=== PATIENT | male | born 1965 | race Caucasian/White ===

== ENCOUNTER → 2017-08-22 09:28 | Outpatient (CLI) | payer OTHER, SELFPAY ==
--- NOTE | 2017-08-22 09:35 | RAD_ITS ---
STUDY: X-RAY CHEST REASON FOR EXAM: Male, 52 years old. Increasing shortness of breath on excision. Chest discomfort. TECHNIQUE: PA and lateral views of the chest. COMPARISON: None. FINDINGS: The lungs are clear and expanded. There is no demonstrated pleural abnormality. Normal size heart. Normal mediastinum and paula. Normal visualized pulmonary arteries. There is atherosclerotic tortuosity of the aortic arch and descending thoracic aorta. There are degenerative changes of the visualized thoracic spine. Normal visualized ribs, clavicles, and shoulders. There is no demonstrated abnormality of the visualized soft tissue structures of the upper abdomen. RAD/Chest PA and Lateral IMPRESSION: No acute abnormality is seen. Electronically Signed: Kahlil Bailey MD at 13:36 EST Tel [phone], Service support ,
[2017-08-22 11:32] LABS: Absolute Neutrophil Count 3.5 X10^3/uL (2.0-7.7); Basophil# 0.02 X10^3/uL; Basophil% 0.3 % (0-1); Eosinophil# 0.05 X10^3/uL; Eosinophils% 0.9 % (0-5); Hematocrit 48.1 % (40-54); Hemoglobin 16.8 g/dl (13.0-16.5); Lymphocyte % 25.9 % (19-41); Mean Corp Hgb Conc 34.9 g/gl (32-36); Mean Corpuscular Hgb 29.2 pg (27.0-32.0); Mean Corpuscular Volume 83.7 fL (80-94); Mean Platelet Vol. 10.2 fl (6.2-12.0); Monocyte# 0.72 X10^3/uL; Monocyte% 12.4 % (0-10); Neutrophil # 3.48 X10^3/uL (2.7-7.7); Neutrophil % 60.2 % (47-70); Platelet Count 245 K/mm3 (150-450); RBC Distribution Width CV 12.6 % (11.6-14.6); Red Blood Count 5.75 M/mm3 (4.6-6.2); White Blood Count 5.8 K/mm3 (4.4-11.0)
[2017-08-22 11:34] LABS: POSITIVE COUNT NO; POSITIVE DIFFERENTIAL NO; POSITIVE MORPHOLOGY NO
[2017-08-22 11:50] LABS: Prothrombin Time (Protime)PT. 12.7 SECONDS (11.7-14.9)
[2017-08-22 11:51] LABS: Partial Thromboplast Time 27.2 Seconds (24.1-36.2)
[2017-08-22 11:59] LABS: Anion Gap 9 (5-15); BUN 18 mg/dL (7-18); BUN/Creat Ratio 18.1 RATIO (10-20); Calcium,Total 9.6 mg/dL (8.5-10.1); Chloride 97 mmol/L (98-107); EST Glomerular Filtration Rate 84 mL/min (>60); Est Glom Filt Rate - Afr Amer 101 mL/min (>60); Glucose 97 mg/dL (70-110); Sodium Level 137 mmol/L (136-145)
== END ==
PROVIDERS: Family Provider Family Medicine; PCP Family Medicine; Visit Provider Internal Medicine Cardiovascular Disease
DX: R07.9 Chest pain, unspecified (principal); I35.1 Nonrheumatic aortic (valve) insufficiency; I10 Essential (primary) hypertension; R06.09 Other forms of dyspnea
CPT/HCPCS: 36415; 71046; 80048; 85025; 85610; 85730

== ENCOUNTER → 2017-08-29 07:27 | Day surgery (SDC) | payer OTHER, SELFPAY ==
[2017-08-26 14:00] VITALS: BMI 34.3
--- NOTE | 2017-08-29 07:30 | ECHOD_ITS ---
Version 2 Reason For Study: Non-rheumatic aortic insufficiency Procedure This was a 2D Doppler, Color Flow transthoracic echocardiogram. Exam performed in department. Left Ventricle Normal LV size. Sigmoid septum. Left ventricular systolic function is normal. The estimated ejection fraction is 55 %. No regional wall motion abnormalities noted. Right Ventricle Normal RV size. Normal systolic function. Atria Normal left atrium. Normal right atrium. Mitral Valve Normal mitral valve. Tricuspid Valve Normal tricuspid valve. Aortic Valve The aortic valve is not well visualized. Mild focal aortic valve calcification. Moderately severe (3+) eccentric aortic valve insufficiency. Pulmonic Valve Normal pulmonic valve. Great Vessels Mildly dilated aortic root. The pulmonary artery is normal size. Normal inferior vena cava. Pericardium/Pleural No pericardial effusion. MMode/2D Measurements & Calculations LVIDd: 4.5 cm IVSd: 1.6 cm LVOT diam: 2.2 cm LVIDs: 3.1 cm LVPWd: 1.0 cm LVOT area: 3.7 cm2 RVDd: 3.1 cm FS: 31.6 % Ao root diam: 3.9 cm LAV(MOD-bp): 49.7 ml LA A4 area: 12.1 cm2 LA dimension: 3.5 cm LAV(MOD-bp) Indexed: 24.2 ml/m2 LAV(MOD-sp2): 64.9 ml LAV(MOD-sp4): 31.2 ml RA A4 area: 12.9 cm2 Doppler Measurements & Calculations MV E max santos: 54.9 cm/sec Lat Peak E' Santos: 4.7 cm/sec Med Peak E' Santos: 4.9 cm/sec MV A max santos: 100.9 cm/sec E/E' lat: 11.6 E/E' med: 11.2 MV E/A: 0.54 Ao V2 max: 348.4 cm/sec AI max santos: 406.8 cm/sec LV V1 max: 135.6 cm/sec Ao max P.9 mmHg AI max P.2 mmHg LV V1 max P.4 mmHg Ao V2 mean: 252.3 cm/sec AI dec slope: 353.5 cm/sec2 LV V1 mean P.7 mmHg Ao mean P.1 mmHg AI P1/2t: 337.0 msec LV V1 mean: 104.5 cm/sec Ao V2 VTI: 71.3 cm LV V1 VTI: 31.5 cm MARTINEZ(I,D): 1.6 cm2 MARTINEZ(V,D): 1.4 cm2 SV(LVOT): 115.4 ml PA V2 max: 78.5 cm/sec TR max santos: 243.1 cm/sec TR max P.6 mmHg Interpretation Summary Normal LV size. Left ventricular systolic function is normal. The estimated ejection fraction is 55 %. Mild focal aortic valve calcification. Mildly dilated aortic root. Moderately severe (3+) eccentric aortic valve insufficiency. Ordering Physician: Clifford Mendoza Referring Physician: Camilo Villavicencio Performed By: Amy Garcia RDCS
--- NOTE | 2017-08-31 10:49 | CL.D_ITS ---
Patient Name: ZENA CRAFT Study Date: 08/29/2017 Performing: Clifford Mendoza MD Ht: 66.14 inches 168 cm : 1965 Wt: 213.85 lbs 97 kg Age: 52 Gender: male BSA: 2.06 PROCEDURE(S) PERFORMED DC11-AO ROOT ANGIO WITH HEART CATH [id number]/COR CLINICAL PROFILE AND INDICATIONS INDICATIONS: 52-year-old man with a history of aortic regurgitation Stress/Imaging Stress Echocardiogram: Yes Result: NegativeStress Echocardiogram: Negative Angina Classification Anginal Classification w/in 2 Weeks: No symptoms CAD Presentations: No Sxs, no angina. CONCLUSIONS Normal coronary arteries Aortic Valve Calcification- Mild Aortic Valve Insufficiency Moderate Consider aortic valve replacement and root surgery. RECOMMENDATIONS Surgery consult for valvular disease DESCRIPTION OF PROCEDURE The patient arrived to the procedure lab. The risks and benefits of the procedure as well as a full d escription of our services here and current unavailability of surgical backup were fully explained to the patient and/or their significant other prior to the catheterization. The Timeout was completed, verifying the correct patient and procedure. The patient's procedural site was prepped and draped in the usual fashion. Local anesthetic was given subcutaneously to right radial region with Lidocaine 2% . Using a modified Seldinger technique, arterial access was obtained via the right radial artery, a 6 Fr sheath was inserted. Left Coronary Artery selective angiography was performed in multiple views u sing a 5 Fr. 4.0 [place] catheter. Right Coronary Artery selective angiography was then performed in mu ltiple views using a 5 Fr. JR 5 catheter.The arterial sheath was pulled and a TR Band was applied for hemostasis-16ml air CORONARY ANGIOGRAPHY DOMINANCE: Right Dominant LEFT HEART ASSESSMENT Left Ventricular Ejection Fraction: by Echo 55 % LEFT MAIN: Angiographically normal LEFT ANTERIOR DECENDING ARTERY: Angiographically normal CIRCUMFLEX ARTERY: Angiographically normal RIGHT CORONARY ARTERY: Angiographically normal VALVE FINDINGS: Aortic Valve Insufficiency: Grade 3 AORTIC ROOT: Dilated COMPLICATIONS No Complications PROCEDURE MEDICATIONS Versed 1 mg IV Fentanyl 50 mcg IV Versed 1 mg IV Oxygen: 2 L/min via nasal cannula Heparin diluted in 23cc Heparinized saline. Patient given 10cc IA of this solution. 08/29/2017 10:23:2 7 Verapamil 2.5mg, Ntg 100mcgs, 2000 units of Heparin diluted in 23cc Heparinized saline. Patient give n 10cc IA of this solution. 08/29/2017 10:23:27 IV Bolus: .9 NaCl 500 ml total 08/29/2017 10:27:09 SUMMARY OF HEMODYNAMIC DATA Time AIR REST ECG 08:38:38 AO 55/36 (44) SA 10:26:59 AO 70/49 (57) 10:28:05 AO 85/69 (77) 10:32:28 AO 89/71 (80) 10:36:27 LV 105/73, 77 10:42:43 Signed By Clifford Mendoza MD On 08/29/2017 10:55:28 Clifford Mendoza MD
== END ==
LOC: CVS 10:31 → CLSP 08-30 10:56
PROVIDERS: Family Provider Family Medicine; PCP Family Medicine; Visit Provider Internal Medicine Cardiovascular Disease
DX: I35.1 Nonrheumatic aortic (valve) insufficiency (principal); I70.0 Atherosclerosis of aorta; Z79.82 Long term (current) use of aspirin; Z79.899 Other long term (current) drug therapy; I10 Essential (primary) hypertension; E66.9 Obesity, unspecified; Z82.49 Family history of ischemic heart disease and other diseases of the circulatory system; R07.9 Chest pain, unspecified; R06.02 Shortness of breath
CPT/HCPCS: 93306; 93454; 93567; 99152; 99153; J7040; C1769; C1894; Q9967

== ENCOUNTER → 2017-10-10 07:49 | Outpatient (CLI) | payer OTHER, SELFPAY ==
--- NOTE | 2017-10-10 07:51 | CT_ITS ---
STUDY: CT CHEST WITH CONTRAST REASON FOR EXAM: Male, 52 years old. Dilated aortic root. Dyspnea with exertion. Leaking aortic valve. RADIATION DOSAGE (If Supplied By Facility): CTDIvol = ( 17.14 ) mGy, DLP = ( 737.52 ) mGycm TECHNIQUE: Transaxial imaging was performed following intravenous administration of 100 ml of Isovue 300 contrast material. Individualized dose optimization techniques were used for this CT. COMPARISON: Chest, August 22, 2017. FINDINGS: The root of the aorta measures 4.2 x 4.5 cm at the level of the right pulmonary artery (image 57, series 2). This tapers into the aortic arch. There is marked tortuosity of the ascending aorta without aneurysm. There is no dissection. There is no evidence of leakage of contrast outside the confines of the artery. The lungs are normal. There is no demonstrated pleural abnormality. The heart isn't enlarged. Normal mediastinum. Normal hilar regions. Normal enhanced pulmonary arteries. There are minimal degenerative changes of the thoracic spine. There is a small type I hiatal hernia. The abdomen is otherwise unremarkable. CT/Chest WITH Contrast IMPRESSION: 1. Ascending aortic aneurysm with a maximum diameter of 4.2 x 4.5 cm. There is no dissection or leakage. 2. Cardiomegaly. 3. No acute pulmonary disease. 4. Small hiatal hernia. Electronically Signed: Salvador Willis DO at 16:54 EDT Tel [phone], Service support ,
--- NOTE | 2017-10-10 07:51 | ECHOTEE_ITS ---
Reason For Study: AV insufficiency, MTZ Medication ERMELINDA probe passed with minimal difficulty. No complications were noted. Cetacaine Topical Lisman given X3 orally. Versed 2 mg given slow IVP. Fentanyl 50 mcg given slow IVP. Performed a rapid injection of agitated mix of 9 cc saline and 1cc air to assess for atrial septal defect. Left Ventricle Normal LV size. The estimated ejection fraction is 60 %. Left ventricular systolic function is normal. No regional wall motion abnormalities noted. Right Ventricle Normal RV size. Normal systolic function. The right ventricular wall motion is normal. Atria Intact atrial septum. Normal left atrium. No thrombus is detected in the left atrial appendage. Normal right atrium. Mitral Valve Normal mitral valve. Tricuspid Valve Normal tricuspid valve. Aortic Valve Bicuspid aortic valve. Moderate focal aortic valve calcification. Moderately severe (3+) aortic valve insufficiency. Pulmonic Valve Normal pulmonic valve. Vessels Mildly dilated aortic root. Normal arch. The pulmonary artery is normal size. Pulmonary venous flow normal. Pericardium No pericardial effusion. Interpretation Summary Normal LV size. The estimated ejection fraction is 60 %. Left ventricular systolic function is normal. Bicuspid aortic valve. Moderate focal aortic valve calcification. Moderately severe (3+) aortic valve insufficiency. Mildly dilated aortic root. Ordering Physician: Clifford Mendoza Referring Physician: Camilo Villavicencio Performed By: Dayanara Yanez, RDCS, RVT
== END ==
PROVIDERS: Family Provider Family Medicine; PCP Family Medicine; Visit Provider Internal Medicine Cardiovascular Disease
DX: I10 Essential (primary) hypertension (principal); R06.09 Other forms of dyspnea; I77.810 Thoracic aortic ectasia; Q23.1 Congenital insufficiency of aortic valve; I70.0 Atherosclerosis of aorta; I71.2 Thoracic aortic aneurysm, without rupture; K44.9 Diaphragmatic hernia without obstruction or gangrene; I51.7 Cardiomegaly
CPT/HCPCS: 71260; 93312; 93320; 93325; J7030; Q9967; A4216

== ENCOUNTER → 2017-11-14 13:53 | Outpatient (CLI) | payer OTHER, SELFPAY ==
[2017-11-14 14:16] LABS: International Normalized Ratio 1.3; Prothrombin Time (Protime)PT. 15.9 SECONDS (11.7-14.9)
== END ==
PROVIDERS: Family Provider Family Medicine; PCP Family Medicine; Visit Provider Internal Medicine Cardiovascular Disease
DX: Z95.2 Presence of prosthetic heart valve (principal)
CPT/HCPCS: 36415; 85610

== ENCOUNTER → 2017-11-16 09:33 | Outpatient (CLI) | payer OTHER, SELFPAY ==
[2017-11-16 10:11] LABS: International Normalized Ratio 1.8; Prothrombin Time (Protime)PT. 21.3 SECONDS (11.7-14.9)
== END ==
PROVIDERS: Family Provider Family Medicine; PCP Family Medicine; Visit Provider Internal Medicine Cardiovascular Disease
DX: Z95.2 Presence of prosthetic heart valve (principal); Z79.01 Long term (current) use of anticoagulants
CPT/HCPCS: 36415; 85610

== ENCOUNTER → 2017-11-18 10:05 | Outpatient (CLI) | payer OTHER, SELFPAY ==
[2017-11-18 11:43] LABS: International Normalized Ratio 3.6; Prothrombin Time (Protime)PT. 36.3 SECONDS (11.7-14.9)
== END ==
PROVIDERS: Family Provider Family Medicine; PCP Family Medicine; Visit Provider Internal Medicine Cardiovascular Disease
DX: Z79.01 Long term (current) use of anticoagulants (principal); Z95.2 Presence of prosthetic heart valve
CPT/HCPCS: 36415; 85610

== ENCOUNTER → 2017-11-25 10:29 | Outpatient (CLI) | payer OTHER, SELFPAY ==
[2017-11-25 11:21] LABS: International Normalized Ratio 2.3; Prothrombin Time (Protime)PT. 25.3 SECONDS (11.7-14.9)
== END ==
PROVIDERS: Family Provider Family Medicine; PCP Family Medicine; Visit Provider Internal Medicine Cardiovascular Disease
DX: Z95.2 Presence of prosthetic heart valve (principal)
CPT/HCPCS: 36415; 85610

== ENCOUNTER → 2017-12-09 09:34 | Outpatient (CLI) | payer OTHER, SELFPAY ==
[2017-12-09 10:50] LABS: International Normalized Ratio 2.1; Prothrombin Time (Protime)PT. 23.3 SECONDS (11.7-14.9)
== END ==
PROVIDERS: Family Provider Family Medicine; PCP Family Medicine; Visit Provider Internal Medicine Cardiovascular Disease
DX: I35.0 Nonrheumatic aortic (valve) stenosis (principal)
CPT/HCPCS: 36415; 85610

== ENCOUNTER 2017-12-16 10:42 | Outpatient (RCR) | payer OTHER, SELFPAY ==
[2017-12-02 14:37] LABS: International Normalized Ratio 2.3; Prothrombin Time (Protime)PT. 25.8 SECONDS (11.7-14.9)
[2017-12-16 11:51] LABS: International Normalized Ratio 2.6; Prothrombin Time (Protime)PT. 27.7 SECONDS (11.7-14.9)
== END 2017-12-16 11:00 | disposition home or self-care (01) ==
LOC: LAB 10:42
PROVIDERS: Family Provider Family Medicine; PCP Family Medicine; Visit Provider Internal Medicine Cardiovascular Disease
DX: I35.0 Nonrheumatic aortic (valve) stenosis (principal)
CPT/HCPCS: 36415; 85610

== ENCOUNTER 2017-12-28 10:56 | Outpatient (RCR) | payer OTHER, SELFPAY ==
--- NOTE | 2017-12-28 10:56 | DT_ITS ---
This patient was seen during an EMR downtime December 26, 2017 - January 02, 2018. This patient may have a combination of paper and electronic documentation or all paper documentation. All documentation is viewable within the e-chart portion of [facility] for each patient visit.
[2017-12-31 10:49] LABS: International Normalized Ratio 2.4; Prothrombin Time (Protime)PT. 26.4 SECONDS (11.7-14.9)
== END 2017-12-28 12:00 | disposition home or self-care (01) ==
LOC: LAB 10:56
PROVIDERS: Family Provider Family Medicine; PCP Family Medicine; Visit Provider Internal Medicine Cardiovascular Disease
DX: I35.0 Nonrheumatic aortic (valve) stenosis (principal)
CPT/HCPCS: 36415; 85610

== ENCOUNTER → 2018-01-03 08:06 | Outpatient (CLI) | payer OTHER, SELFPAY ==
--- NOTE | 2018-01-03 08:13 | PCM.CR.ITP ---
General Information - General Information Admitting Diagnosis: Aortic valve replacemtn with aortic root dilation - Education/Goals Barriers to Learning: None Individual Counseling: Initial Assessment: High Blood Pressure, Overweight/Obesity Cardiac Rehabilitation Goals: 1. Maintain the individual as the primary focus of care. 2. To improve the patient's quality of life. 3. Identification of cardiac risk factors and provide cardiac risk factor management. 4. Enhance the psychosocial status of the patient. 5. Reconditioning enough to allow the patient to resume customary activities. 6. Control symptoms of cardiac disease Scale for measuring improvement of personal goals: Enter appropriate number in Comments. 2 = Unchanged. 3 = Slightly Better. 4 = Moderate Improvement. 5 = Met my Goal Personal Goals: Initial Assessment: Improve management of stress and emotions, Improve energy level, Improve diet and eating habits (eat healthier), Control risk factors (learn risk factor modification) - BP, Weight, Exercise Exercise - Initial Assessment - Visit Date of Eval: 01/03/18 - initial ITP established; start date - Stages of Change Stages of Change:: Action - Exercise Prescription Mode:: Treadmill, Rower, Airdyne Angina with exercise?: No Target Heart Rate:: 126-132 - Hypertension Do any of the following apply?: Yes Resting Blood Pressure:: 150/90 - Intervention Home Exercise/Activity Goal:: Moderate Exercise 30 min/day x 5 days/wk - walks daily 5-6 days up to 30 minutes - Education Goals:: Warm-up, RPE NEGRITO Scale, S/S, Safe Exercise, Self-Monitoring - Exercise Program Goals Exercise Program Goals: Aerobic Activity >30 min Nutrition - Initial Assessment - Program Goals Nutrition Program Goals: LDL <70. Total Cholesterol <200. HDL >45. Triglycerides <150. HgbA1C <7%. BMI <25 - Visit Date of Assessment:: 01/03/18 - Stages of Change Stages of Change:: Action - Diabetes Diabetes:: No Insulin: No Non-Insulin Dependent?: No Do you monitor your blood sugar at home?: No - Weight Management Height: 5 ft 6 in Weight:: 214 lb - Intervention Referral to dietitian:: No Referral to Diabetic Clinic:: No Will attend diet classes:: Yes - Education Gave educational materials for:: Healthy eating Tobacco - Initial Assessment - Program Goals Tobacco Program Goals: Complete smoking cessation. Attend education classes. Improve Knowledge Test score - Stage of Change Stages of Change:: Action - Learning Barriers Learning Barriers: Ready to Learn - Family Support Do you have family support?: Yes - Tobacco Use Tobacco Use: Non-smoker Do you use smokeless tobacco?: No - Intervention Smoking Cessation Referral:: No Individual Education/Counseling:: No Education Schedule Given:: Yes - Education Gave educational material for:: Coronary artery disease, Risk factors, Sexuality, Medical compliance, Cardiac A&P, Angina signs & symptoms Psychosocial - Initial Assess - Target Goals Target Goals: Assess presence or absence of depression. Using a valid screening tool, maximizes coping skills. Positive support system - Stages of Change Stages of Change:: Action - Psychosocial Test Tool Used:: HANDS Depression Questionnaire - Intervention PS - Interventions: Yes Attend Stress Management Classes, Yes Uses Stress Management Skills, No Referral to Mental Health, No Referral to [facility] Case Management, No Referral to Physician - Education Gave educational materials for:: Coping techniques, Signs & symptoms of depression, Stress management, Relaxation techniques - Patient/Program Goal Preventative Medication(s):: Aspirin, Clopidogrel, Beta svetlana, Statin/lipid - Assistive Devices Assistive Devices:: None Fall Risk Assessed:: Yes Patient Health Questionnaire Initial Assessment 1. Little interest or pleasure in doing things: Several days 2. Feeling down, depressed, or hopeless: Several days 3. Trouble falling or staying asleep, or sleeping too much: Several days 4. Feeling tired or having little energy: Several days 5. Poor appetite or overeating: More than half the days 6. Feeling bad about yourself -- or that you are a failure or have let yourself or your family down: Not at all 7. Trouble concentrating on things, such as reading the newspaper or watching television: Not at all 8. Moving or speaking so slowly that other people could have noticed. Or the opposite - being so fidgety or restless that you have been moving around a lot more than usual: Not at all 9. Thoughts that you would be better off , or of hurting yourself in some way: Not at all How difficult have these problems made it for you to do your work, take care of things at home, or get along with other people?: Not difficult at all Total Score: 6 THERESA-Q SV Test - Statements CAD is a disease of the arteries in the heart: False Examples of risk factors for heart disease: True Angina is chest pain or discomfort: I Don't Know The benefits of resistance training include: True Eating more meat and dairy products: False Anti-platelet medications such as aspirin are important: True The only effective way to manage stress: True An exercise warm-up slowly increases heart rate: True Prepared, processed foods usually have high sodium: True Depression is common after a heart attack: I Don't Know The statin medications lower cholesterol: True To control blood pressure, lower the amount of sodium: True If someone gets chest discomfort during walking: False Transfats are partially hydrogenated vegetable oils: True Sleep apnea that is not treated increases the risk: I Don't Know To control cholesterol, one should become a vegetarian: False Someone knows if he/she is exercising at the right level: I Don't Know Diabetes cannot be prevented with exercise & health eating: False Stress is a large risk for heart attack: True A diet that can help lower blood pressure is rich in: True - Total Score Total Correct Responses: 15 Self-Efficacy Initial Assessment We would like to know how confident you are in doing certain activities. Please select your confidence level for:: Select your confidence level for the following using the scale 1-10 where 1 is not at all confident and 10 is totally confident. Your score is the average of all 6 responses. Fatigue: How confident are you that you can keep the fatigue caused by your disease from interfering with the things you want to do? Select Number: 10 Physical Discomfort or Pain: How confident are you that you can keep the physical discomfort or pain of your disease from interfering with the things you want to do? Select Number: 9 Emotional Distress: How confident are you that you can keep the emotional distress caused by your disease from interfering with the things you want to do? Select Number: 8 Other Symptoms or Health Problems: How confident are you that you can keep other symptoms or health problems from interfering with the things you want to do? Select Number: 7 Different Tasks and Activities: How confident are you that you can do the different tasks and activities needed to manage your health condition so as to reduce your need to see a doctor? Select Number: 9 Medication: How confident are you that you can do things other than just taking medication to reduce how much your illness affects your everyday life? Select Number: 7 Total Score:: 8 Nutrition Survey - Nutrition Survey Instructions Scoring Instructions: Scoring is as follows: Yes = 1 points. No = 0 point. Patient score that is >/=12 is considered to be at potential nutritional risk and could benefit from a referral to a registered dietitian. - Nutrition Survey Initial Have you lost >10 lbs over the past 2 months without trying?: Yes Are you following a special diet at home for diabetes, low fat, or low salt?: Yes Are you interested in meeting with a dietitian for help understanding your diet?: Yes Do you eat less than 3 meals a day?: No Do you eat fatty meats (jackson, sausage, ribs, etc), fried foods, desserts, large amounts of salad dressings, margarine, butter, or cheese most days?: No Do you have food allergies? [Enter types in comment field]: No Do you eat in restaurants more than 3 times a week?: No Do you season food with salt, seasoning salt, or garlic salt?: No Do you used canned, boxed, frozen meals, or soups, seasoning packets?: Yes Total Score:: 4
--- NOTE | 2018-01-03 08:14 | PCM.CR.HP2 ---
CR - History & Physical - General Arrival date:: 01/03/18 Arrival time:: 08:14 Date of Referral:: 12/12/17 Date of CR Evaluation:: 01/03/18 Referring Physician: DR.CYRIL VILLALOBOS Primary Diagnosis: Aortic Valve Replacement - History of Present Cardiac Event Onset Date: Enter Onset Date of cardiac illnesses in Comment field below Heart valve replacement or repair:: Yes - 10/28/2017 @ [facility] Type of Symptoms:: dyspnea on exertion not accompanied by any chest pain in evening even at rest. On evaluation primary found heart murmur he was scheduled for stress echocardiogram under the care of Dr. Clifford Villalobos. Interventions with present event:: Sent to [facility] in [place] for heart valve replacement Were there any complications?: none - Medications Home Medications: Ambulatory Orders Medication Instructions Recorded aspirin 81 mg tablet,delayed 81 mg PO QDAY 08/19/17 release atorvastatin 40 mg tablet 40 mg PO QDAY #90 tab 11/29/17 losartan 100 mg tablet 100 mg PO QDAY #90 tab 11/29/17 metoprolol tartrate 25 mg tablet 25 mg PO BID 30 Days #60 tab 11/29/17 warfarin 1 mg tablet 1 mg PO QDAY #90 tab 12/02/17 warfarin 5 mg tablet 5 mg PO QDAY #60 tab 12/02/17 amlodipine 10 mg tablet 10 mg PO QDAY #30 tab 12/09/17 hydrochlorothiazide 25 mg tablet 25 mg PO QAM #30 tab 12/16/17 - Allergies Allergies/Adverse Reactions: Allergies amoxicillin Allergy (Verified 11/29/17 14:55) hives lisinopril Adverse Reaction (Verified 11/29/17 14:55) cough - Sleep Disorder Evaluation Hx of Sleep Apnea: No Do you snore loudly (louder than talking or can be heard through closed doors)?: No - better now than before the valve was replaced. 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 Shane [place] Mechanical Prosthesis 10/28/17 H/O umbilical hernia repair Z98.890, Z87.19 Surgical History: - - suspended aortic replacement, status post mechanical aortic valve replacement, h/o umbilical hernia repair. - Family History Summary Family History: Family History (Last Reviewed 11/29/17 @ 15:25 by Clifford Villalobos MD) Mother CAD (coronary artery disease) coronary stents in her 70's Father CAD (coronary artery disease) Father from [place] age 57 Social History - Smoking History Smoking Status: Never smoker Hx Tobacco Use: No Hx Smoking Exposure: No - Alcohol Use Alcohol Usage: Yes - a few times a month glass of wine. - Substance Abuse Hx Substance Use: No - Occupation Occupation (List type of work in comments):: Employed Hours worked per day:: 12 - up to 16 hours daily Returned to work on:: 01/02/18 - Hobbies, Recreation, Social Activities Hobbies: Walking - 5-6 days week 15-30 minutes daily. Recreational Activities: I am able to engage in all my recreational activities Social Environment - Status Marital Status: - Current Living Arrangements Living Environment:: Spouse - Children How many children do you have?: 1 - still at home; 14 yr old son. Do any of your children live nearby?: Yes - Safety Do you feel safe in your surroundings?: Yes Review of Systems - Review of Systems Hints: Right click = Denies ([place]). Left click = Reports ([place]) Review of Present Symptoms: Reports: Shortness of Breath with Exertion - not to much, very little if any., Dizziness/Lightheadedness - once carline while get a spell, especially before taking medications in the morning and getting up for the day., Appetite - Normal - occasionally feel a little nauseated at tiimes., Appetite - Special Diet - watching salt intake, stopped the empty calories lost about 16-17 pounds, just by cutting back., Sleep - Normal. Denies: Shortness of Breath at Rest, Fatigue, Sexual Changes - Pain Is Patient Pain Free?: Yes Pain Location: none Pain Level: 0/10 Risk Factor Assessment - Chief Complaint Chief Complaint: Patient is a 52 yr old male who presents to cardiac rehab today under the care of Dr. Villalobos. He had previously been on an CARLA inhibitor and felt he was having some cough neck discomfort. Progressive worsening of shortness opf breath with exertion and was seen by primary physician and sent to Dr. Villalobos for follow-up. - Vital Signs Temperature: 98.7 F Respiratory Rate: 14 Pulse Ox: 97 Blood Pressure: 140/80 - increased amlodipine to 10mg daily Nailbeds:: pink normal refill - Pulse Pulse Rate: 84 Pulse Rhythm: Regular - Hypertension Blood Pressure Sitting - Left Arm: 140/80 - still elevated - Diabetes Nutrition Referral for Diabetes: No - Obesity Height: 5 ft 6 in Weight:: 214 lb Weight in Pounds: 214.0 lbs Weight Source: Standing Scale Body Mass Index (BMI): 34.5 Nutritional Referral for Obesity: Yes - Physical Inactivity Physical Inactivity: Reg Exercise 30 min/day, Physically demanding job - Risk Stratification Risk Guidelines: Lowest Risk: Risk Factor for Smoking, Risk Factor for Dyslipidemia, Risk Factor for Diabetes, Risk Factor for Sedentary Lifestyle, Risk Factor for Depression, Highest Risk: Risk Factor for Obesity, Risk Factor for Hypertension - For Smoking Smoking Risk Guidelines: Smoking Low Risk: None or quit greater than 6 months ago. Smoking Moderate Risk: Smoker or quit 6 months or less ago. Smoking High Risk: Smoker - For Dyslipidemia Dyslipidemia Risk Guidelines: Low Risk: Moderate Risk: High Risk: 15-25% fat 25.1-29% fat >/= 30% fat. <7% sat fat 7-9% sat fat >9% sat fat. <150 mg chol 150-299 mg chol >/= 300 mg chol. LDL <100 LDL 100-129 LDL >/= 130. Chol/HDL ratio <5.0 Chol/HDL ratio 5.0-6.0 Chol/HDL ratio >6.0. Triglycerides <100 Triglycerides 100-149 Triglycerides >/= 150 - For Diabetes Mellitus Diabetes Risk Guidelines: Diabetes Low Risk: HgA1c <6.5% and/or FBG <120. Diabetes Moderate Risk: HgA1c 6.6-7.9% and/or FBG 120-180. Diabetes High Risk: HgA1c >/= 8% and/or FBG >180 - For Obesity/Overweight Obesity/Overweight Risk Guidelines: Obesity Low Risk: BMI <25.0. Obesity Moderate Risk: BMI 25-29.9. Obesity High Risk: BMI >/= 30.0 - For Hypertension Hypertension Risk Guidelines: Hypertension Low Risk: Systolic <120 and Diastolic <80. Hypertension Moderate Risk: Systolic 120-139 and Diastolic 80-89. Hypertension High Risk: Systolic >/= 140 and Diastolic >/= 90 - For Sedentary Lifestyle Sedentary Lifestyle Risk Guidelines: Sedentary Lifestyle Low Risk: >/= 1,500 kcal/week. Sedentary Lifestyle Moderate Risk: 700-1,499 kcal/week. Sedentary Lifestyle High Risk: < 700 kcal/week - For Depression Depression Risk Guidelines: Depression Low Risk: Not clinically depressed. Depression Moderate Risk: Mildly depressed. Depression High Risk: Clinically depressed - Family History Family History: Family History (Last Reviewed 11/29/17 @ 15:25 by Clifford Villalobos MD) Mother CAD (coronary artery disease) Father CAD (coronary artery disease) Motivation - Motivation to Participate On a scale of 1 to 10, how prepared are you to commit to attending program?: 6 - not really sure if needed it. What do you see as barriers to successfully being able to complete the program?: work schedule What do you see as the benefits of succesfully completing the program? In other words, what do you hope to get out of participating in the program?: need some cardiac-physical; good cardio-exercise workout. Are there issues you are dealing with that will interfere with completing the program?: none Do you have a spouse or signficant other, family or friends who will help support you to complete the program?: yes.
--- NOTE | 2018-01-03 08:24 | CR.HP_ITS ---
CR - History & Physical - General Arrival date:: 01/03/18 Arrival time:: 08:14 Date of Referral:: 12/12/17 Date of CR Evaluation:: 01/03/18 Referring Physician: DR.CYRIL VILLALOBOS Primary Diagnosis: Aortic Valve Replacement - History of Present Cardiac Event Onset Date: Enter Onset Date of cardiac illnesses in Comment field below Heart valve replacement or repair:: Yes - 10/28/2017 @ [facility] Type of Symptoms:: dyspnea on exertion not accompanied by any chest pain in evening even at rest. On evaluation primary found heart murmur he was scheduled for stress echocardiogram under the care of Dr. Clifford Villalobos. Interventions with present event:: Sent to [facility] in [place] for heart valve replacement Were there any complications?: none - Medications Home Medications: Ambulatory Orders Medication Instructions Recorded aspirin 81 mg tablet,delayed 81 mg PO QDAY 08/19/17 release atorvastatin 40 mg tablet 40 mg PO QDAY #90 tab 11/29/17 losartan 100 mg tablet 100 mg PO QDAY #90 tab 11/29/17 metoprolol tartrate 25 mg tablet 25 mg PO BID 30 Days #60 tab 11/29/17 warfarin 1 mg tablet 1 mg PO QDAY #90 tab 12/02/17 warfarin 5 mg tablet 5 mg PO QDAY #60 tab 12/02/17 amlodipine 10 mg tablet 10 mg PO QDAY #30 tab 12/09/17 hydrochlorothiazide 25 mg tablet 25 mg PO QAM #30 tab 12/16/17 - Allergies Allergies/Adverse Reactions: Allergies amoxicillin Allergy (Verified 11/29/17 14:55) hives lisinopril Adverse Reaction (Verified 11/29/17 14:55) cough - Sleep Disorder Evaluation Hx of Sleep Apnea: No Do you snore loudly (louder than talking or can be heard through closed doors)? : No - better now than before the valve was replaced. 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 Shane [place] Mechanical Prosthesis 10/28/17 H/O umbilical hernia repair Z98.890, Z87.19 Surgical History: - - suspended aortic replacement, status post mechanical aortic valve replacement, h/o umbilical hernia repair. - Family History Summary Family History: Family History (Last Reviewed 11/29/17 @ 15:25 by Clifford Villalobos MD) Mother CAD (coronary artery disease) coronary stents in her 70's Father CAD (coronary artery disease) Father from [place] age 57 Social History - Smoking History Smoking Status: Never smoker Hx Tobacco Use: No Hx Smoking Exposure: No - Alcohol Use Alcohol Usage: Yes - a few times a month glass of wine. - Substance Abuse Hx Substance Use: No - Occupation Occupation (List type of work in comments):: Employed Hours worked per day:: 12 - up to 16 hours daily Returned to work on:: 01/02/18 - Hobbies, Recreation, Social Activities Hobbies: Walking - 5-6 days week 15-30 minutes daily. Recreational Activities: I am able to engage in all my recreational activities Social Environment - Status Marital Status: - Current Living Arrangements Living Environment:: Spouse - Children How many children do you have?: 1 - still at home; 14 yr old son. Do any of your children live nearby?: Yes - Safety Do you feel safe in your surroundings?: Yes Review of Systems - Review of Systems Hints: Right click = Denies ([place]ash). Left click = Reports ([place]) Review of Present Symptoms: Reports: Shortness of Breath with Exertion - not to much, very little if any., Dizziness/Lightheadedness - once carline while get a spell, especially before taking medications in the morning and getting up for the day., Appetite - Normal - occasionally feel a little nauseated at tiimes., Appetite - Special Diet - watching salt intake, stopped the empty calories lost about 16-17 pounds, just by cutting back., Sleep - Normal. Denies: Shortness of Breath at Rest, Fatigue, Sexual Changes - Pain Is Patient Pain Free?: Yes Pain Location: none Pain Level: 0/10 Risk Factor Assessment - Chief Complaint Chief Complaint: Patient is a 52 yr old male who presents to cardiac rehab today under the care of Dr. Villalobos. He had previously been on an CARLA inhibitor and felt he was having some cough neck discomfort. Progressive worsening of shortness opf breath with exertion and was seen by primary physician and sent to Dr. Villalobos for follow-up. - Vital Signs Temperature: 98.7 F Respiratory Rate: 14 Pulse Ox: 97 Blood Pressure: 140/80 - increased amlodipine to 10mg daily Nailbeds:: pink normal refill - Pulse Pulse Rate: 84 Pulse Rhythm: Regular - Hypertension Blood Pressure Sitting - Left Arm: 140/80 - still elevated - Diabetes Nutrition Referral for Diabetes: No - Obesity Height: 5 ft 6 in Weight:: 214 lb Weight in Pounds: 214.0 lbs Weight Source: Standing Scale Body Mass Index (BMI): 34.5 Nutritional Referral for Obesity: Yes - Physical Inactivity Physical Inactivity: Reg Exercise 30 min/day, Physically demanding job - Risk Stratification Risk Guidelines: Lowest Risk: Risk Factor for Smoking, Risk Factor for Dyslipidemia, Risk Factor for Diabetes, Risk Factor for Sedentary Lifestyle, Risk Factor for Depression, Highest Risk: Risk Factor for Obesity, Risk Factor for Hypertension - For Smoking Smoking Risk Guidelines: Smoking Low Risk: None or quit greater than 6 months ago. Smoking Moderate Risk: Smoker or quit 6 months or less ago. Smoking High Risk: Smoker - For Dyslipidemia Dyslipidemia Risk Guidelines: Low Risk: Moderate Risk: High Risk: 15-25% fat 25.1-29% fat >/= 30% fat. <7% sat fat 7-9% sat fat >9% sat fat. <150 mg chol 150-299 mg chol >/= 300 mg chol. LDL <100 LDL 100-129 LDL >/= 130. Chol/HDL ratio <5.0 Chol/HDL ratio 5.0-6.0 Chol/HDL ratio >6.0. Triglycerides <100 Triglycerides 100-149 Triglycerides >/= 150 - For Diabetes Mellitus Diabetes Risk Guidelines: Diabetes Low Risk: HgA1c <6.5% and/or FBG <120. Diabetes Moderate Risk: HgA1c 6.6-7.9% and/or FBG 120-180. Diabetes High Risk: HgA1c >/= 8% and/or FBG >180 - For Obesity/Overweight Obesity/Overweight Risk Guidelines: Obesity Low Risk: BMI <25.0. Obesity Moderate Risk: BMI 25-29.9. Obesity High Risk: BMI >/= 30.0 - For Hypertension Hypertension Risk Guidelines: Hypertension Low Risk: Systolic <120 and Diastolic <80. Hypertension Moderate Risk: Systolic 120-139 and Diastolic 80-89. Hypertension High Risk: Systolic >/= 140 and Diastolic >/= 90 - For Sedentary Lifestyle Sedentary Lifestyle Risk Guidelines: Sedentary Lifestyle Low Risk: >/= 1 ,500 kcal/week. Sedentary Lifestyle Moderate Risk: 700-1,499 kcal/week. Sedentary Lifestyle High Risk: < 700 kcal/week - For Depression Depression Risk Guidelines: Depression Low Risk: Not clinically depressed. Depression Moderate Risk: Mildly depressed. Depression High Risk: Clinically depressed - Family History Family History: Family History (Last Reviewed 11/29/17 @ 15:25 by Clifford Villalobos MD) Mother CAD (coronary artery disease) Father CAD (coronary artery disease) Motivation - Motivation to Participate On a scale of 1 to 10, how prepared are you to commit to attending program?: 6 - not really sure if needed it. What do you see as barriers to successfully being able to complete the program? : work schedule What do you see as the benefits of succesfully completing the program? In other words, what do you hope to get out of participating in the program?: need some cardiac-physical; good cardio-exercise workout. Are there issues you are dealing with that will interfere with completing the program?: none Do you have a spouse or signficant other, family or friends who will help support you to complete the program?: yes.
[2018-01-03 08:35] VITALS: BP 140/80; PULSE 84; RESP 14; TEMP 37.1; O2SAT 97; BMI 34.5
[2018-01-03 09:15] VITALS: BP 150/90
== END ==
PROVIDERS: Family Provider Family Medicine; PCP Family Medicine; Visit Provider Internal Medicine Cardiovascular Disease
DX: Z95.2 Presence of prosthetic heart valve (principal); Z95.828 Presence of other vascular implants and grafts

== ENCOUNTER → 2018-01-10 14:52 | Outpatient (CLI) | payer OTHER, SELFPAY ==
[2018-01-10 16:30] LABS: International Normalized Ratio 2.4; Prothrombin Time (Protime)PT. 26.2 SECONDS (11.7-14.9)
[2018-01-10 16:47] LABS: Anion Gap 7 (5-15); BUN 31 mg/dL (7-18); BUN/Creat Ratio 18.8 RATIO (10-20); Calcium,Total 9.4 mg/dL (8.5-10.1); Chloride 104 mmol/L (98-107); Creatinine, Serum 1.65 mg/dL (0.70-1.30); EST Glomerular Filtration Rate 47 mL/min (>60); Est Glom Filt Rate - Afr Amer 56 mL/min (>60); Glucose 87 mg/dL (74-106); Potassium 3.7 mmol/L (3.5-5.1); Sodium Level 140 mmol/L (136-145)
== END ==
PROVIDERS: Physician Assistant Medical; Family Provider Family Medicine; PCP Family Medicine; Visit Provider Internal Medicine Cardiovascular Disease
DX: I10 Essential (primary) hypertension (principal); I35.0 Nonrheumatic aortic (valve) stenosis
CPT/HCPCS: 36415; 80048; 85610

== ENCOUNTER 2018-01-27 09:54 | Outpatient (RCR) | payer OTHER, SELFPAY | END 2018-01-27 09:55 | disposition home or self-care (01) | LOC: NS 09:54 | PROVIDERS: Family Provider Family Medicine; PCP Family Medicine; Visit Provider Internal Medicine Cardiovascular Disease | DX: Z95.2 Presence of prosthetic heart valve (principal); Z87.448 Personal history of other diseases of urinary system; E66.9 Obesity, unspecified; Z68.34 Body mass index [BMI] 34.0-34.9, adult; Z71.3 Dietary counseling and surveillance | CPT/HCPCS: 97802 ==

== ENCOUNTER 2018-02-03 15:27 | Outpatient (RCR) | payer OTHER, SELFPAY ==
[2018-01-27 11:58] LABS: International Normalized Ratio 2.1; Prothrombin Time (Protime)PT. 23.4 SECONDS (11.7-14.9)
[2018-01-27 12:09] LABS: Anion Gap 8 (5-15); BUN 22 mg/dL (7-18); BUN/Creat Ratio 22.5 RATIO (10-20); Calcium,Total 9.1 mg/dL (8.5-10.1); Chloride 108 mmol/L (98-107); Creatinine, Serum 0.98 mg/dL (0.70-1.30); EST Glomerular Filtration Rate 85 mL/min (>60); Est Glom Filt Rate - Afr Amer 103 mL/min (>60); Glucose 77 mg/dL (74-106); Potassium 3.7 mmol/L (3.5-5.1); Sodium Level 142 mmol/L (136-145)
[2018-02-03 16:47] LABS: International Normalized Ratio 2.5; Prothrombin Time (Protime)PT. 27.5 SECONDS (11.7-14.9)
== END 2018-02-03 17:00 | disposition home or self-care (01) ==
LOC: LAB 15:27
PROVIDERS: Physician Assistant Medical; Family Provider Family Medicine; PCP Family Medicine; Visit Provider Internal Medicine Cardiovascular Disease
DX: I35.0 Nonrheumatic aortic (valve) stenosis (principal); I10 Essential (primary) hypertension
CPT/HCPCS: 36415; 80048; 85610

== ENCOUNTER → 2018-02-16 15:23 | Outpatient (CLI) | payer OTHER, SELFPAY ==
[2018-02-16 17:47] LABS: International Normalized Ratio 2.6; Prothrombin Time (Protime)PT. 27.6 SECONDS (11.7-14.9)
== END ==
PROVIDERS: Family Provider Family Medicine; PCP Family Medicine; Visit Provider Internal Medicine Cardiovascular Disease
DX: I35.0 Nonrheumatic aortic (valve) stenosis (principal)
CPT/HCPCS: 36415; 85610

== ENCOUNTER → 2018-02-27 08:48 | Outpatient (CLI) | payer OTHER, SELFPAY | PROVIDERS: Family Provider Family Medicine; PCP Family Medicine; Visit Provider Internal Medicine Cardiovascular Disease | DX: Z95.2 Presence of prosthetic heart valve (principal) | CPT/HCPCS: 93306 ==

== ENCOUNTER → 2018-02-28 05:56 | Outpatient (CLI) | payer OTHER, SELFPAY ==
[2018-02-28 08:10] LABS: AST(SGOT) 21 U/L (15-37); Alanine Aminotransfer ALT/SGPT 46 U/L (16-61); Albumin, Serum 3.7 g/dL (3.2-5.0); Alkaline Phosphatase 72 U/L (45-117); Bilirubin, Direct 0.15 mg/dL (0.00-0.30); Cholesterol 74 mg/dL (200); Globulin 3.6 g/dL (2.2-4.2); High Density Lipoprotein 23 mg/dL; Protein, Total 7.3 g/dL (6.4-8.2); Triglycerides 106 mg/dL; Very Low Density Lipoprotein 21 mg/dL (5-40)
== END ==
PROVIDERS: Family Provider Family Medicine; PCP Family Medicine; Visit Provider Internal Medicine Cardiovascular Disease
DX: E78.00 Pure hypercholesterolemia, unspecified (principal)
CPT/HCPCS: 36415; 80061; 80076

== ENCOUNTER 2018-03-23 15:31 | Outpatient (RCR) | payer OTHER, SELFPAY ==
[2018-03-08 18:02] LABS: International Normalized Ratio 2.4; Prothrombin Time (Protime)PT. 26.1 SECONDS (11.7-14.9)
[2018-03-23 17:29] LABS: International Normalized Ratio 3.4; Prothrombin Time (Protime)PT. 34.8 SECONDS (11.7-14.9)
== END 2018-03-23 17:00 | disposition home or self-care (01) ==
LOC: LAB 15:31
PROVIDERS: Family Provider Family Medicine; PCP Family Medicine; Visit Provider Internal Medicine Cardiovascular Disease
DX: I35.0 Nonrheumatic aortic (valve) stenosis (principal)
CPT/HCPCS: 36415; 85610

== ENCOUNTER 2018-04-18 13:36 | Outpatient (RCR) | payer OTHER, SELFPAY ==
[2018-04-18 15:21] LABS: International Normalized Ratio 2.2; Prothrombin Time (Protime)PT. 24.9 SECONDS (11.7-14.9)
== END 2018-04-18 15:00 | disposition home or self-care (01) ==
LOC: LAB 13:36
PROVIDERS: Family Provider Family Medicine; PCP Family Medicine; Visit Provider Internal Medicine Cardiovascular Disease
DX: I35.0 Nonrheumatic aortic (valve) stenosis (principal)
CPT/HCPCS: 36415; 85610

== ENCOUNTER 2018-05-11 14:58 | Outpatient (RCR) | payer OTHER, SELFPAY ==
[2018-05-11 16:25] LABS: International Normalized Ratio 3.1; Prothrombin Time (Protime)PT. 32.3 SECONDS (11.7-14.9)
== END 2018-05-11 16:00 | disposition home or self-care (01) ==
LOC: LAB 14:58
PROVIDERS: Family Provider Family Medicine; PCP Family Medicine; Referring Provider Internal Medicine Cardiovascular Disease; Visit Provider Internal Medicine Cardiovascular Disease
DX: I35.0 Nonrheumatic aortic (valve) stenosis (principal)
CPT/HCPCS: 36415; 85610

== ENCOUNTER 2018-06-02 06:49 | Outpatient (RCR) | payer OTHER, SELFPAY ==
[2018-06-02 07:55] LABS: International Normalized Ratio 3.5; Prothrombin Time (Protime)PT. 35.7 SECONDS (11.7-14.9)
== END 2018-06-23 11:21 | disposition home or self-care (01) ==
LOC: LAB 06:49
PROVIDERS: Family Provider Family Medicine; PCP Family Medicine; Referring Provider Internal Medicine Cardiovascular Disease; Visit Provider Internal Medicine Cardiovascular Disease
DX: I35.0 Nonrheumatic aortic (valve) stenosis (principal)
CPT/HCPCS: 36415; 85610

== ENCOUNTER 2018-06-27 17:07 | Outpatient (RCR) | payer OTHER, SELFPAY ==
[2018-03-10 10:00] VITALS: BMI 34.7
[2018-06-27 17:34] LABS: International Normalized Ratio 3.1; Prothrombin Time (Protime)PT. 32.3 SECONDS (11.7-14.9)
== END 2018-06-27 18:00 | disposition home or self-care (01) ==
LOC: LAB 17:07
PROVIDERS: Family Provider Family Medicine; PCP Family Medicine; Referring Provider Internal Medicine Cardiovascular Disease; Visit Provider Internal Medicine Cardiovascular Disease
DX: I35.0 Nonrheumatic aortic (valve) stenosis (principal)
CPT/HCPCS: 36415; 85610

== ENCOUNTER 2018-08-02 15:09 | Outpatient (RCR) | payer OTHER, SELFPAY ==
[2018-08-02 16:49] LABS: International Normalized Ratio 3.3; Prothrombin Time (Protime)PT. 33.4 SECONDS (11.7-14.9)
== END 2018-08-02 16:09 | disposition home or self-care (01) ==
LOC: LAB 15:09
PROVIDERS: Family Provider Family Medicine; PCP Family Medicine; Referring Provider Internal Medicine Cardiovascular Disease; Visit Provider Internal Medicine Cardiovascular Disease
DX: I35.0 Nonrheumatic aortic (valve) stenosis (principal)
CPT/HCPCS: 36415; 85610

== ENCOUNTER 2018-09-05 15:41 | Outpatient (RCR) | payer OTHER, SELFPAY ==
[2018-03-10 10:00] VITALS: BMI 34.7
[2018-09-05 16:35] LABS: International Normalized Ratio 3.2; Prothrombin Time (Protime)PT. 33.1 SECONDS (11.7-14.9)
== END 2018-09-21 14:32 | disposition home or self-care (01) ==
LOC: LAB 15:41
PROVIDERS: Family Provider Family Medicine; PCP Family Medicine; Referring Provider Internal Medicine Cardiovascular Disease; Visit Provider Internal Medicine Cardiovascular Disease
DX: I35.0 Nonrheumatic aortic (valve) stenosis (principal)
CPT/HCPCS: 36415; 85610

== ENCOUNTER 2018-10-09 14:20 | Outpatient (RCR) | payer OTHER, SELFPAY ==
[2018-03-10 10:00] VITALS: BMI 34.7
[2018-10-09 15:56] LABS: International Normalized Ratio 2.4; Prothrombin Time (Protime)PT. 25.8 SECONDS (11.7-14.9)
== END 2018-10-09 15:20 | disposition home or self-care (01) ==
LOC: LAB 14:20
PROVIDERS: Family Provider Family Medicine; PCP Family Medicine; Referring Provider Internal Medicine Cardiovascular Disease; Visit Provider Internal Medicine Cardiovascular Disease
DX: I35.0 Nonrheumatic aortic (valve) stenosis (principal)
CPT/HCPCS: 36415; 85610

== ENCOUNTER 2018-11-16 16:18 | Outpatient (RCR) | payer OTHER, SELFPAY ==
[2018-03-10 10:00] VITALS: BMI 34.7
[2018-10-23 16:15] LABS: International Normalized Ratio 2.7; Prothrombin Time (Protime)PT. 28.6 SECONDS (11.7-14.9)
[2018-11-16 17:23] LABS: Prothrombin Time (Protime)PT. 35.2 SECONDS (11.7-14.9)
[2018-11-16 17:32] LABS: International Normalized Ratio 3.5
== END 2018-11-21 16:00 | disposition home or self-care (01) ==
LOC: LAB 16:18
PROVIDERS: Family Provider Family Medicine; PCP Family Medicine; Referring Provider Internal Medicine Cardiovascular Disease; Visit Provider Internal Medicine Cardiovascular Disease
DX: I35.0 Nonrheumatic aortic (valve) stenosis (principal)
CPT/HCPCS: 36415; 85610

== ENCOUNTER 2018-12-19 15:16 | Outpatient (RCR) | payer OTHER, SELFPAY ==
[2018-12-13 17:55] LABS: Prothrombin Time (Protime)PT. 42.2 SECONDS (11.7-14.9)
[2018-12-13 18:15] LABS: International Normalized Ratio 4.4
[2018-12-19 16:01] LABS: International Normalized Ratio 2.3; Prothrombin Time (Protime)PT. 25.1 SECONDS (11.7-14.9)
== END 2018-12-19 16:16 | disposition home or self-care (01) ==
LOC: LAB 15:16
PROVIDERS: Family Provider Family Medicine; PCP Family Medicine; Referring Provider Internal Medicine Cardiovascular Disease; Visit Provider Internal Medicine Cardiovascular Disease
DX: I35.0 Nonrheumatic aortic (valve) stenosis (principal)
CPT/HCPCS: 36415; 85610

== ENCOUNTER 2019-01-08 15:06 | Outpatient (RCR) | payer OTHER, SELFPAY ==
[2018-03-10 10:00] VITALS: BMI 34.7
[2018-12-26 17:11] LABS: Prothrombin Time (Protime)PT. 30.9 SECONDS (11.7-14.9)
[2019-01-08 15:35] LABS: Prothrombin Time (Protime)PT. 38.3 SECONDS (11.7-14.9)
[2019-01-08 15:57] LABS: International Normalized Ratio 3.9
== END 2019-01-21 12:00 | disposition home or self-care (01) ==
LOC: LAB 15:06
PROVIDERS: Family Provider Family Medicine; PCP Family Medicine; Referring Provider Internal Medicine Cardiovascular Disease; Visit Provider Internal Medicine Cardiovascular Disease
DX: Z79.01 Long term (current) use of anticoagulants (principal)
CPT/HCPCS: 36415; 85610

== ENCOUNTER → 2019-01-10 11:53 | Outpatient (CLI) | payer OTHER, SELFPAY ==
[2019-01-10 11:10] VITALS: BMI 36.9
--- NOTE | 2019-01-10 12:07 | CT_ITS ---
STUDY: CT ABDOMEN WITH CONTRAST REASON FOR EXAM: Male, 53 years old. Question of incisional hernia RADIATION DOSAGE (If Supplied By Facility): CTDIvol = ( 16.64 ) mGy, DLP = ( 962.39 ) mGycm TECHNIQUE: Transaxial 3.75 mm images were obtained post I.V. administration of 100ML IV/Oral Isovue 370, and with oral contrast. Sagittal and coronal images were reconstructed. Individualized dose optimization techniques were used for this CT. COMPARISON: CT chest 3 02/09/2018 FINDINGS: Minor atelectasis and compression of the dependent parenchyma. Interval sternotomy, valve replacement, retained epicardial lead in stable cardiac enlargement. There is coronary artery calcification. There is low attenuation along the falciform ligament most consistent with focal fatty sparing. Normal gallbladder and extrahepatic biliary system. Normal spleen. Normal pancreas. Normal bilateral adrenal glands. Normal right kidney. Normal left kidney. There is a small hiatal hernia. Normal small intestine. Normal colon. The appendix is visualized and appears normal. Normal abdominal aorta. Normal inferior vena cava. Normal retroperitoneum. There is an interval formation of multiple subxiphoid fat-containing midline hernia, the most inferior hernia with an opening of 2.9 cm width image 39 series 2 with the hernia sac measuring 2.2 x 5.9 x 3.5 cm. The craniocaudal extension overall is 6.7 cm. There is stranding of the fat anterior to the transverse colon in the peritoneum extending into the inferior portion of the hernia. There is no bowel content or ascitic fluid. There are diffuse degenerative changes of the visualized lumbar spine. CT/Abdomen WITH IV Contrast IMPRESSION: Subxiphoid/supraumbilical midline ventral hernia with the most inferior portion containing stranded mesenteric fat with scattered fat stranding extending intraperitoneal anterior to the transverse colon. There is no bowel content. Other nonacute findings as outlined above. Electronically Signed: Katy Carvajal MD at 2:07 EDT , Service support ,
[2019-01-10 12:44] LABS: Anion Gap 7 (5-15); BUN 15 mg/dL (7-18); BUN/Creat Ratio 14.4 RATIO (10-20); Calcium,Total 9.1 mg/dL (8.5-10.1); Chloride 105 mmol/L (98-107); Creatinine, Serum 1.04 mg/dL (0.70-1.30); EST Glomerular Filtration Rate 79 mL/min (>60); Est Glom Filt Rate - Afr Amer 96 mL/min (>60); Glucose 83 mg/dL (74-106); Potassium 3.7 mmol/L (3.5-5.1); Sodium Level 140 mmol/L (136-145)
== END ==
PROVIDERS: Family Provider Family Medicine; PCP Family Medicine; Referring Provider Internal Medicine Cardiovascular Disease; Visit Provider Internal Medicine Cardiovascular Disease
DX: I10 Essential (primary) hypertension (principal); R19.02 Left upper quadrant abdominal swelling, mass and lump
CPT/HCPCS: 36415; 74160; 80048; Q9967

== ENCOUNTER 2019-02-20 15:03 | Outpatient (RCR) | payer OTHER, SELFPAY ==
[2019-01-12 14:39] VITALS: BMI 36.9
[2019-01-29 16:31] LABS: Prothrombin Time (Protime)PT. 36.4 SECONDS (11.7-14.9)
[2019-01-29 16:37] LABS: International Normalized Ratio 3.6
[2019-02-08 17:43] LABS: Prothrombin Time (Protime)PT. 31.5 SECONDS (11.7-14.9)
[2019-02-20 16:49] LABS: International Normalized Ratio 2.9; Prothrombin Time (Protime)PT. 30.8 SECONDS (11.7-14.9)
== END 2019-02-21 16:00 | disposition home or self-care (01) ==
LOC: LAB 15:03
PROVIDERS: Family Provider Family Medicine; PCP Family Medicine; Referring Provider Internal Medicine Cardiovascular Disease; Visit Provider Internal Medicine Cardiovascular Disease
DX: Z79.01 Long term (current) use of anticoagulants (principal)
CPT/HCPCS: 36415; 85610

== ENCOUNTER 2019-02-26 12:52 | Inpatient (IN) | payer OTHER, SELFPAY ==
[2019-02-01 13:42] VITALS: BMI 37.1
--- NOTE | 2019-02-02 07:49 | HP_ITS ---
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: No Is patient in pain?: No Allergies amoxicillin Allergy (Verified 02/01/19 13:43) hives lisinopril Adverse Reaction (Verified 02/01/19 13:43) cough Medications atorvastatin 40 mg tablet 40 mg PO QDAY #90 tab 11/20/18 [Rx Confirmed 02/01/19] warfarin 5 mg tablet 5 mg PO QDAY #60 tab 11/20/18 [Rx Confirmed 02/01/19] losartan 100 mg tablet 100 mg PO QDAY #90 tab 11/27/18 [Rx Confirmed 02/01/19] amlodipine 10 mg tablet 10 mg PO QDAY #30 tab 12/19/18 [Rx Confirmed 02/01/19] clindamycin HCl 300 mg capsule 600 mg PO ONCE #4 cap 01/10/19 [Rx Confirmed 01/12/19] metoprolol tartrate 25 mg tablet 25 mg PO BID #60 tab 01/10/19 [History Confirmed 02/01/19] warfarin 1 mg tablet 1 mg PO .COMPLEX #180 tab 01/24/19 [Rx Confirmed 02/01/19] [facility] Medical History Hyperlipidemia (Chronic) Nonrheumatic aortic (valve) stenosis (Chronic) 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) Dilated aortic root (Resolved) Nonrheumatic aortic valve insufficiency (Resolved) Obesity (BMI 30.0-34.9) (Chronic) Surgical History History of ascending aortic replacement (Resolved 10/28/17) Status post mechanical aortic valve replacement (Resolved 10/28/17) History of aortic aneurysm repair (Acute) History of colonoscopy (Acute ~2014) H/O umbilical hernia repair (Chronic) Family History Mother CAD (coronary artery disease) coronary stents in her 70's Father CAD (coronary artery disease) Father from [place] age 57 Social History (Updated 02/02/19 @ 07:49 by Pedro Stokes MD) Smoking Status: Never smoker alcohol intake: current alcohol intake frequency: a few times a month Alcohol type: wine substance use type: does not use caffeine: Yes Type: coffee Number of servings: 1 what type of physical activity do you participate in: walking frequency: 5-6 times per week duration: 15-30 minutes/day seatbelt use: always do you feel safe at home: Yes HPI HPI HPI: ZENA CRAFT, is a 54 M who presents to the office today for HPI HPI Surgical H&P: Yes HPI: ZENA CRAFT, is a 54 M who presents to the office today for update of his H&P for ventral hernia repair. The patient reports that his hernia is getting worse and he would like it repaired. ROS General General: Yes weight change; no appetite, fatigue, colon cancer, breast cancer or weakness HEENT HEENT: No difficulty swallowing, eye injury, eye surgery, swollen glands or hoarseness Endo Endocrine: No thyroid disease, diabetes mellitus, thyroid cancer, Hair loss, heat intolerance or cold intolerance Skin Skin: No rash or changing moles Musc Musculoskeletal: No back problems, arthritis or rheumatoid arthritis Cardio Cardiovascular: Yes high blood pressure; no murmur, pacemaker, heart disease, atrial fibrillation, heart attack, heart stent, palpitations, shortness of breat with exertion or chest pain Additional Details: valve replacement and aneurysm repair Psych Psychiatric: No depression or anxiety Resp Respiratory: No shortness of breath, No sleep apnea, No cough, No COPD, No asthma, No emphysema, No wheezing Gastro Gastrointestinal: Yes abdominal pain, No nausea or vomiting, No diarrhea, No constipation, No blood in stool, No acid reflux, Yes hemorrhoids, No ulcers, No gallbladder problem, No black,tarry stools Grover Hematologic: Yes blood thinners, No blood disorders, No bleeding, No anemia, No blood clots Neuro Neurologic: No weakness Exam Const General: cooperative Orientation: alert, oriented x3 Resp Effort & Inspection: normal respiratory effort Auscultation: clear to auscultation bilaterally Cardio Rate: regular rate Rhythm: regular rhythm Heart Sounds: no murmurs GI Inspection: non-distended Palpation: soft, hernia ventral, nontender Assessment & Plan Problems 1. Incisional hernia, without obstruction or gangrene K43.2; K43.91 Plan The patient has an incisional ventral hernia in the epigastric region from his CABG incision. I offered the patient open ventral hernia repair with mesh in an onlay fashion to reduce the amount of bleeding as he will be fully anticoagulated during surgery. I discussed this with Dr. Mendoza and he plans to bring the INR down to a level of 2 for surgery which is acceptable. I explained the risks of surgery including not limited to bleeding, infection, mesh infection, hernia recurrence, seroma and hematoma formation. Patient understands risks and is willing to proceed with surgery. Pedro Stokes MD Pager: [facility] [address] [place] [address], [address] [place] [address] Office: Coding Level of Care Code Off vis,est,level 3 Diagnoses Incisional hernia, without obstruction or gangrene K43.2; K43.91 ??Obstruction and gangrene presence: without obstruction or gangrene 02/02/19 0749 <Electronically signed by Pedro marmolejo MD> Date _ Pedro Stokes MD I have re-examined the patient. There are no clinical changes since date of exam.
--- NOTE | 2019-02-20 15:37 | EKG12_ITS ---
Test Reason : PRE OP Blood Pressure : / mmHG Vent. Rate : 073 BPM Atrial Rate : 073 BPM P-R Int : 156 ms QRS Dur : 112 ms QT Int : 392 ms P-R-T Axes : 075 072 066 degrees QTc Int : 431 ms Normal sinus rhythm with sinus arrhythmia Normal ECG Confirmed by MANUEL CASAS, PAULA ([id number]), supervising editor trailer ZEN RICE ([id number]) on 02/21/2019 10:51:56 AM Referred By: Pedro Stokes Confirmed By:PAULA JACKSON MD
[2019-02-20 16:11] LABS: Hemoglobin 13.8 g/dL (13.0-16.5); Red Blood Count 4.64 M/mm3 (4.6-6.2); White Blood Count 6.3 K/mm3 (4.4-11.0)
[2019-02-20 16:12] LABS: Hematocrit 39.9 % (40-54); Mean Corp Hgb Conc 34.6 g/dL (32-36); Mean Corpuscular Hgb 29.7 pg (27.0-32.0); Mean Platelet Vol. 9.8 fl (6.2-12.0); Platelet Count 205 K/mm3 (150-450); RBC Distribution Width CV 12.7 % (11.6-14.6); RBC Distribution Width SD 39.8 fl (35.1-43.9)
[2019-02-20 16:36] LABS: Partial Thromboplast Time 35.4 Seconds (24.1-36.2)
[2019-02-20 17:06] LABS: AST(SGOT) 20 U/L (15-37); Alanine Aminotransfer ALT/SGPT 43 U/L (16-61); Albumin, Serum 3.6 g/dL (3.2-5.0); Alkaline Phosphatase 72 U/L (45-117); Anion Gap 8 (5-15); BUN 21 mg/dL (7-18); BUN/Creat Ratio 17.5 RATIO (10-20); Bilirubin, Direct 0.17 mg/dL (0.00-0.30); Calcium,Total 8.9 mg/dL (8.5-10.1); Chloride 107 mmol/L (98-107); EST Glomerular Filtration Rate 67 mL/min (>60); Est Glom Filt Rate - Afr Amer 81 mL/min (>60); Globulin 3.6 g/dL (2.2-4.2); Glucose 79 mg/dL (74-106); Potassium 3.8 mmol/L (3.5-5.1); Protein, Total 7.2 g/dL (6.4-8.2); Sodium Level 142 mmol/L (136-145)
[2019-02-22 08:04] VITALS: BMI 37.1
[2019-02-26] VITALS (11 sets, daily range): BP systolic 109–148; BP diastolic 66–93; PULSE 62–90; RESP 16–18; TEMP 36.2–36.8; O2SAT 93–98; BMI 36.9
--- NOTE | 2019-02-26 | HERN_PTH ---
PATIENT: ZENA CRAFT LOC: MS3 U#:[id number] AGE/SX: 54/M [place] [facility]26/[address]: Dr. Pedro Stokes MD : 1965 BED: 1 DIS: 03/02/2019 SPEC #: [id number] RECD: 02/26/19 13:33 STATUS: CORY NDIAYEMir #: [id number] ANITA: 02/26/19 00:[address]: Pedro Stokes DEPT: SURGICAL PATHOLOGY RECD BY: Terence Membreno ENTERED: 02/26/19 13:33 SP TYPE: Hernia OTHR DR: Dr. Camilo Villavicencio, DO Tissues: HERNIA Procedures: Surgery Specimen Level II HEADER OPERATION: Hernia, ventral/incisional repair with mesh PRE-OP DIAGNOSIS: Incisional hernia without obstruction or gangrene TISSUE SUBMITTED: Hernia sac MICROSCOPIC DIAGNOSIS Hernia sac: A piece of fibroadipose and fibroconnective tissue, consistent with hernia sac with focal reactive changes. TREY:kiran 02/27/19 MICROSCOPIC DESCRIPTION Slides are reviewed. GROSS DESCRIPTION Received in fixative is one container labeled with the patient's name and designated hernia sac. The specimen consists of an irregular piece of fibromembranous tissue measuring 8.5 x 2 x 0.5 cm. No mass lesion is identified. Bacon Skinner sections are submitted in one cassette. / TREY:kiran 02/26/19 TC: CPT: [id number]
--- NOTE | 2019-02-26 10:41 | PN_ITS ---
Progress Note Patient's INR came back at 0.8. The plan was to have him off Coumadin for a day or 2 to let it drop down to the lower end of full anticoagulation but it drifted down lower. I discussed this with Dr. García who is covering for Dr. Mendoza and he says that since this is in the aortic valve I should be okay to proceed with surgery. Plan is to start heparin shortly after surgery and continue heparin drip and start Coumadin tonight and keep on heparin drip until INR therapeutic. I discussed this with the patient and his family. Pedro Stokes MD Pager: [facility] [address] [place] [address], [address] [place] [address] Office:
[2019-02-26 10:53] LABS: International Normalized Ratio 1.8
[2019-02-26] MEDS: Bupiv/Epi 0.25% 30 ML Vial (12:05)
[2019-02-26] MEDS: 0.9% Normal Saline 1,000 ML 75 ML IV (13:30)
[2019-02-26 16:25] LABS: International Normalized Ratio 1.8; Prothrombin Time (Protime)PT. 20.3 SECONDS (11.7-14.9)
[2019-02-26 16:26] LABS: Partial Thromboplast Time 29.5 Seconds (24.1-36.2)
[2019-02-26] MEDS: HEPARIN/D5w 25,000 UNITS 25,000 UNITS/250 ML IV.SOLN. 15 UNITS IV (16:33)
[2019-02-26] MEDS: oxyCODONE 5 MG Tablet PO ×3 (16:48→23:17)
[2019-02-26] MEDS: Atorvastatin Calcium 40 MG Tablet PO (21:14)
[2019-02-26] MEDS: amLODIPine 10 MG Tablet PO (21:14)
[2019-02-26] MEDS: Metoprolol Tartrate 25 MG Tablet PO (21:14)
[2019-02-27] VITALS (7 sets, daily range): BP systolic 101–124; BP diastolic 61–84; PULSE 72–84; RESP 16–18; TEMP 36.6–37.2; O2SAT 92–98
--- NOTE | 2019-02-27 00:35 | NURSING ---
Restarted Pt's Heparin @ 0030 @ 1500 units/hr: 15ml/hr after [address] Jamil. verified with Tameka Mcpherson RN.
[2019-02-27 02:33] LABS: Partial Thromboplast Time 44.1 Seconds (24.1-36.2)
[2019-02-27] MEDS: 0.9% Normal Saline 1,000 ML 75 ML IV (02:58)
[2019-02-27] MEDS: Heparin Injection (Vial) 5,000 UNIT/ML VIAL IV (03:32)
--- NOTE | 2019-02-27 03:44 | NURSING ---
IV bolus of 1000 units of heparin per protocol witnessed by TEDDY HUYNH.
[2019-02-27 06:32] LABS: Absolute Lymphocyte Count 0.58 X10^3/uL (0.83-4.51); Absolute Neutrophil Count 13.4 X10^3/uL (2.0-7.7); Basophil# 0.01 X10^3/uL; Basophil% 0.1 % (0-1); Hematocrit 35.8 % (40-54); Hemoglobin 12.1 g/dL (13.0-16.5); Lymphocyte # 0.58 X10^3/ul (4.0); Lymphocyte % 3.9 % (19-41); Mean Corp Hgb Conc 33.8 g/dL (32-36); Mean Corpuscular Hgb 29.5 pg (27.0-32.0); Mean Corpuscular Volume 87.3 fL (80-94); Monocyte# 0.63 X10^3/uL; Monocyte% 4.3 % (0-10); NRBC Flagged by Analyzer 0 % (0-5); POSITIVE DIFFERENTIAL YES; Platelet Count 213 K/mm3 (150-450); RBC Distribution Width CV 12.8 % (11.6-14.6); RBC Distribution Width SD 40.9 fl (35.1-43.9); White Blood Count 14.7 K/mm3 (4.4-11.0)
[2019-02-27 06:34] LABS: Differential Indicated SCAN CRITERIA MET
[2019-02-27 06:38] LABS: International Normalized Ratio 1.5; Prothrombin Time (Protime)PT. 17.5 SECONDS (11.7-14.9)
--- NOTE | 2019-02-27 07:48 | PN.SURG_ITS ---
Subjective: Patient had oozing from his wound last night. Heparin had to be stopped for a few hours and then resumed. He reports his pain is well controlled. - Physical Exam General: Alert, Oriented x3 HEENT: Atraumatic Lungs: Normal air movement Cardiovascular: Regular rate, Regular Rhythm Abdomen: Soft, Tender - Tender at the incision site, - - Incision with mild amount of serosanguineous drainage Vital Signs Temp Pulse Resp BP Pulse Ox 98 F 82 18 101/61 94 02/27/19 02:50 02/27/19 02:50 02/27/19 02:50 02/27/19 02:50 02/27/19 02:50 Oxygen Flow Rate (L/min) 1 Oxygen Delivery Method Nasal Cannula Weight: 229 lb Body Mass Index (BMI) 36.9 Intake and Output for Last 24 Hours 02/25/19 02/26/19 02/27/19 23:59 23:59 23:59 Intake Total 2623 / 2623 950 / 950 Output Total 400 / 400 1300 / 1300 Balance 2223 / 2223 -350 / -350 Laboratory Tests Past 24 Hrs 02/26/19 02/26/19 02/26/19 10:17 10:35 15:45 WBC RBC Hgb Hct MCV MCH MCHC RDW Std Deviation RDW Coeff of Ruth Plt Count MPV Immature Gran % (Auto) Neut % (Auto) Lymph % (Auto) Meade % (Auto) Eos % (Auto) Baso % (Auto) Absolute Neuts (auto) Absolute Lymphs (auto) Nucleated RBC % Differential Comment PT Cancelled 21.0 H 20.3 H INR Cancelled 1.8 1.8 APTT 29.5 02/27/19 02/27/19 02/27/19 02:03 05:40 05:40 WBC 14.7 H RBC 4.10 L Hgb 12.1 L Hct 35.8 L MCV 87.3 MCH 29.5 MCHC 33.8 RDW Std Deviation 40.9 RDW Coeff of Ruth 12.8 Plt Count 213 MPV 10.0 Immature Gran % (Auto) 0.700 Neut % (Auto) 91.0 H Lymph % (Auto) 3.9 L Meade % (Auto) 4.3 Eos % (Auto) 0.0 Baso % (Auto) 0.1 Absolute Neuts (auto) 13.4 H Absolute Lymphs (auto) 0.58 L Nucleated RBC % 0 Differential Comment PT 17.5 H INR 1.5 APTT 44.1 H Medical Necessity - Tobacco Use Smoking Status: Never smoker Assessment/Plan All Active Problems (Last Reviewed 02/01/19 @ 13:42 by Xi Lorenzo) Abdominal wall mass of left upper quadrant (Acute) History of ascending aortic replacement (Resolved 10/28/17) Essential (primary) hypertension (Acute) Status post mechanical aortic valve replacement (Resolved 10/28/17) Dilated aortic root (Resolved) Nonrheumatic aortic valve insufficiency (Resolved) Chest pain at rest (Resolved) Dyspnea on exertion (Resolved) 54-year-old male status post ventral hernia repair 1. Patient has mechanical heart valve and was placed on a heparin drip following surgery. Patient had oozing overnight. The dressing had to be changed several times. I inspected the dressing that was on this morning which had not been changed since 3 AM and it appeared that the drainage had decreased. I will wait until later this morning and ensure that the drainage is decreasing once he is up and moving around. If the drainage is decreasing I will start his Coumadin back up today. Patient will stay on heparin drip until Coumadin is therapeutic. Pedro Stokes MD Pager: [facility] [address] [place] [address], [address] [place] [address] Office:
[2019-02-27 09:48] LABS: Partial Thromboplast Time 70.5 Seconds (24.1-36.2)
[2019-02-27] MEDS: oxyCODONE 5 MG Tablet PO ×2 (10:26→17:48)
[2019-02-27] MEDS: Metoprolol Tartrate 25 MG Tablet PO ×2 (10:27→21:11)
[2019-02-27] MEDS: Losartan Potassium 100 MG Tablet PO (10:27)
[2019-02-27] MEDS: HEPARIN/D5w 25,000 UNITS 25,000 UNITS/250 ML IV.SOLN. 15 UNITS IV (10:47)
--- NOTE | 2019-02-27 12:49 | PCM.OPRPT ---
Problem List (1) Ventral incisional hernia Status: Acute Report of Operation Date of Procedure: 02/26/19 Pre-Operative Diagnosis: Incisional ventral hernia Post-Operative Diagnosis: Same Surgery/Procedure Performed:: Incisional ventral hernia repair with mesh Specimen's removed: Hernia sac Description of Procedure: Patient was brought back to the operating room and general anesthesia was induced. The abdomen was prepped and draped in usual sterile fashion. A midline incision was made in the subxiphoid space in the epigastric region. This was deepened to the hernia sac. The hernia sac was dissected free of the surrounding tissue using electrocautery and blunt dissection. The hernia sac was then opened with scissors and the hernia contents were reduced. The hernia sac was then removed. Peritoneum was then reapproximated using 3-0 Vicryl suture in a running fashion. A preperitoneal space was developed using blunt dissection. A medium ventralex mesh was then placed in the preperitoneal space and sutured to the anterior fascia using interrupted 2-0 PDS sutures. The area was irrigated and suctioned and then the fascial defect was closed with 0 PDS sutures in an interrupted fashion. The subcutaneous tissue was irrigated and hemostasis was obtained using electrocautery. The cavity and skin edges were dry at the end of the case. The subcutaneous tissue was reapproximated using interrupted 3-0 Vicryl sutures and the skin was closed using 4-0 running Monocryl suture. Steri-Strips and bandage were then applied. Patient tolerated the procedure well. Grafts/Implants Used: Medium ventralex mesh - Admit VTE Documentation VTE Mechan Device Prophylaxis: SCD's
--- NOTE | 2019-02-27 14:36 | CASEMGMT ---
RN CM Face to Face with patient for initial transition planning/care coordination assessment. RN CM introduced self and role at [facility]. Patient lying in bed, alert and oriented. Patient willing to participate in assessment and is able to answer all questions appropriately. Care providers, pharmacy, and demographics verified. Patient wishes to discharge home, denies need for home health at this time. Patient states he has no further needs or concerns at this time. CM to follow for discharge planning needs that may arise. PCP: Saud Specialists: Divya, surgeon; Kelly leaf sorter Preferred [facility]acy: [facility] Insurance: MMO Prescription Benefit: yes Living Will/HPOA: none LNOK: Living Arrangements: Patient lives with in ranch style home with 3 steps to enter the home. Patient is independent at home. Transportation: self/ DME/HHC: Patient denies DME. Patient has had [facility] HHC in the past. Denies need for HHC at this time. Disposition Plan: Patient to discharge home with family support and follow-up plans in place. Vanessa PAK, RN, CM
[2019-02-27] MEDS: Pantoprazole Sodium 20 MG Tablet PO ×2 (14:56→21:10)
[2019-02-27] MEDS: Bisacodyl 5 MG Tablet PO (14:56)
[2019-02-27] MEDS: Docusate Sodium 100 MG Capsule PO (21:09)
[2019-02-27] MEDS: Atorvastatin Calcium 40 MG Tablet PO (21:10)
[2019-02-27] MEDS: amLODIPine 10 MG Tablet PO (21:11)
[2019-02-28] VITALS (7 sets, daily range): BP systolic 126–142; BP diastolic 74–86; PULSE 62–74; RESP 16–18; TEMP 36.6–36.7; O2SAT 93–98
[2019-02-28] MEDS: oxyCODONE 5 MG Tablet PO ×3 (01:23→21:04)
[2019-02-28] MEDS: HEPARIN/D5w 25,000 UNITS 25,000 UNITS/250 ML IV.SOLN. 15 UNITS IV ×2 (06:39→23:41)
[2019-02-28 07:37] LABS: Absolute Lymphocyte Count 1.33 X10^3/uL (0.83-4.51); Absolute Neutrophil Count 8.8 X10^3/uL (2.0-7.7); Basophil# 0.02 X10^3/uL; Basophil% 0.2 % (0-1); Eosinophil# 0.01 X10^3/uL; Eosinophils% 0.1 % (0-5); Hematocrit 37.5 % (40-54); Hemoglobin 12.7 g/dL (13.0-16.5); Lymphocyte # 1.33 X10^3/ul (4.0); Lymphocyte % 11.9 % (19-41); Mean Corp Hgb Conc 33.9 g/dL (32-36); Mean Corpuscular Hgb 30.3 pg (27.0-32.0); Mean Corpuscular Volume 89.5 fL (80-94); Mean Platelet Vol. 9.9 fl (6.2-12.0); Monocyte# 0.93 X10^3/uL; Monocyte% 8.3 % (0-10); NRBC Flagged by Analyzer 0 % (0-5); Neutrophil % 78.5 % (47-70); Platelet Count 196 K/mm3 (150-450); RBC Distribution Width CV 13.2 % (11.6-14.6); RBC Distribution Width SD 42.7 fl (35.1-43.9); Red Blood Count 4.19 M/mm3 (4.6-6.2); White Blood Count 11.2 K/mm3 (4.4-11.0)
[2019-02-28] MEDS: Heparin Injection (Vial) 5,000 UNIT/ML VIAL IV (07:42)
[2019-02-28 07:44] LABS: International Normalized Ratio 1.4; Prothrombin Time (Protime)PT. 16.6 SECONDS (11.7-14.9)
--- NOTE | 2019-02-28 09:06 | PCM.PN.SRG ---
Patient Problems: Active and Suspected Problems (Last Reviewed 02/01/19 @ 13:42 by Xi Lorenzo) Ventral incisional hernia (Acute) Subjective: Patient is doing well on tolerating diet - Physical Exam General: Alert, Oriented x3 Lungs: Normal air movement Cardiovascular: Regular rate, Regular Rhythm Abdomen: Soft, Non Tender, Non-Distended Vital Signs Temp Pulse Resp BP Pulse Ox 98.1 F 69 18 134/80 H 98 02/28/19 07:46 02/28/19 07:46 02/28/19 07:46 02/28/19 07:46 02/28/19 07:46 Oxygen Flow Rate (L/min) 1 Oxygen Delivery Method Room Air Weight: 229 lb Body Mass Index (BMI) 36.9 Intake and Output for Last 24 Hours 02/26/19 02/27/19 02/28/19 23:59 23:59 23:59 Intake Total 2623 / 2623 3226.1 / 3625.3 998.2 / 998.2 Output Total 400 / 400 2700 / 3300 1850 / 1850 Balance 2223 / 2223 526.1 / 325.3 -851.8 / -851.8 Laboratory Tests Past 24 Hrs 02/27/19 02/28/19 02/28/19 09:24 06:46 06:46 WBC 11.2 H RBC 4.19 L Hgb 12.7 L Hct 37.5 L MCV 89.5 MCH 30.3 MCHC 33.9 RDW Std Deviation 42.7 RDW Coeff of Ruth 13.2 Plt Count 196 MPV 9.9 Immature Gran % (Auto) 1.000 H Neut % (Auto) 78.5 H Lymph % (Auto) 11.9 L Craven % (Auto) 8.3 Eos % (Auto) 0.1 Baso % (Auto) 0.2 Absolute Neuts (auto) 8.8 H Absolute Lymphs (auto) 1.33 Nucleated RBC % 0 PT INR APTT 70.5 H 49.0 H 02/28/19 06:46 WBC RBC Hgb Hct MCV MCH MCHC RDW Std Deviation RDW Coeff of Ruth Plt Count MPV Immature Gran % (Auto) Neut % (Auto) Lymph % (Auto) Craven % (Auto) Eos % (Auto) Baso % (Auto) Absolute Neuts (auto) Absolute Lymphs (auto) Nucleated RBC % PT 16.6 H INR 1.4 APTT Medical Necessity - Tobacco Use Smoking Status: Never smoker Assessment/Plan All Active Problems (Last Reviewed 02/01/19 @ 13:42 by iX Lorenzo) Ventral incisional hernia (Acute) Abdominal wall mass of left upper quadrant (Acute) History of ascending aortic replacement (Resolved 10/28/17) Essential (primary) hypertension (Acute) Status post mechanical aortic valve replacement (Resolved 10/28/17) Dilated aortic root (Resolved) Nonrheumatic aortic valve insufficiency (Resolved) Chest pain at rest (Resolved) Dyspnea on exertion (Resolved) 54-year-old male status post ventral hernia repair 1. Patient's incision is still having serous drainage but it is much less bloody than it has been. He is tolerating heparin drip and was given 7.5 mg of warfarin yesterday evening. INR is 1.4 today. I discussed his case with Dr. García today and he would like him to stay here on heparin drip until his INR is 2.5. I will give 10 mg of Coumadin tonight and recheck INR in the morning. Continue current management. Pedro Stokes MD Pager: [facility] [address] [place] [address], [address] [place] [address] Office:
[2019-02-28] MEDS: Docusate Sodium 100 MG Capsule PO ×2 (10:21→21:05)
[2019-02-28] MEDS: Metoprolol Tartrate 25 MG Tablet PO ×2 (10:23→21:05)
[2019-02-28] MEDS: Losartan Potassium 100 MG Tablet PO (10:23)
[2019-02-28] MEDS: Pantoprazole Sodium 20 MG Tablet PO ×2 (10:24→21:05)
--- NOTE | 2019-02-28 17:12 | NURSING ---
Addendum entered by Yohana Hollins 02/28/19 17:39: Pt reconnected to IV at 1730. Original Note: pt into shower at this time per order for shower privilege. IV covered and disconnected pt immediately into shower and will be reconnected immediately when finished.
[2019-02-28] MEDS: 0.9% NaCl Peripheral Flush Adult/Peds IV (17:34)
[2019-02-28] MEDS: Atorvastatin Calcium 40 MG Tablet PO (21:05)
[2019-02-28] MEDS: amLODIPine 10 MG Tablet PO (21:05)
[2019-03-01] VITALS (8 sets, daily range): BP systolic 113–137; BP diastolic 77–94; PULSE 60–71; RESP 16–18; TEMP 36.4–37.2; O2SAT 95–97
[2019-03-01 05:43] LABS: International Normalized Ratio 1.5; Prothrombin Time (Protime)PT. 17.5 SECONDS (11.7-14.9)
[2019-03-01 06:06] LABS: Partial Thromboplast Time 120.1 Seconds (24.1-36.2)
[2019-03-01] MEDS: 0.9% NaCl Peripheral Flush Adult/Peds IV (08:13)
[2019-03-01] MEDS: Acetaminophen 325 MG Tablet 650 MG PO ×2 (08:13→19:03)
[2019-03-01] MEDS: Docusate Sodium 100 MG Capsule PO ×2 (08:14→21:44)
[2019-03-01] MEDS: Metoprolol Tartrate 25 MG Tablet PO ×2 (08:14→21:43)
[2019-03-01] MEDS: Pantoprazole Sodium 20 MG Tablet PO ×2 (08:14→21:44)
[2019-03-01] MEDS: Losartan Potassium 100 MG Tablet PO (08:14)
[2019-03-01] MEDS: HEPARIN/D5w 25,000 UNITS 25,000 UNITS/250 ML IV.SOLN. 15 UNITS IV (19:03)
[2019-03-01] MEDS: amLODIPine 10 MG Tablet PO (21:43)
[2019-03-01] MEDS: Atorvastatin Calcium 40 MG Tablet PO (21:44)
[2019-03-02] VITALS: TEMP 36.5
[2019-03-02] MEDS: Acetaminophen 325 MG Tablet 650 MG PO ×2 (01:57→11:31)
[2019-03-02 02:00] VITALS: BP 125/82; PULSE 66; RESP 18; TEMP 36.5; O2SAT 98
[2019-03-02 06:34] LABS: International Normalized Ratio 1.8; Prothrombin Time (Protime)PT. 21.1 SECONDS (11.7-14.9)
[2019-03-02 07:23] VITALS: O2SAT 95
[2019-03-02 07:35] VITALS: BP 113/83; PULSE 61; RESP 18; TEMP 36.6; O2SAT 97
--- NOTE | 2019-03-02 08:52 | NURSING ---
still waiting am PTT results - lab called - states someone william it & added it on to am PT, but didnt tell us. Will add on
[2019-03-02 08:57] VITALS: BP 113/83; PULSE 61
[2019-03-02] MEDS: Losartan Potassium 100 MG Tablet PO (08:57)
[2019-03-02] MEDS: Metoprolol Tartrate 25 MG Tablet PO (08:57)
[2019-03-02] MEDS: Docusate Sodium 100 MG Capsule PO (08:57)
[2019-03-02] MEDS: Pantoprazole Sodium 20 MG Tablet PO (08:57)
[2019-03-02 08:59] LABS: Partial Thromboplast Time 60.3 Seconds (24.1-36.2)
--- NOTE | 2019-03-02 10:52 | DCINST_ITS ---
Discharge Diet: Light diet - advance as tolerated Discharge Activity: Return to Normal Activity, May Shower Lifting Restrictions: 20 pounds for 6 weeks. Additional Activity Instructions:: Climbing stairs is fine, walking is encouraged. Sitting in bed may be uncomfortable. Sitting up using your lateral muscles (sitting up sideways) is usually more comfortable. Pain medications may cause nausea, you should typically eat light foods as you take your pain medications. Pain medications may also cause constipation. If you have difficulty with this, discuss with your doctor. Call your doctor if your incision/area has: Continuous Slow Oozing, Sudden Increased Bleeding, Increased Pain/ Swelling, Increased Redness, Foul Smelling Discharge Call your doctor if you observe: Fever of 101 or Higher Suture Line Care: Avoid Pulling/Pushing, Avoid Pinching/Bending Cleanse incision/area with: Soap & Water Allergies/Adverse Reactions: Allergies amoxicillin Allergy (Verified 02/26/19 10:13) hives lisinopril Adverse Reaction (Verified 02/26/19 10:13) cough Medications to take at Discharge warfarin 5 mg tablet 5 mg PO QDAY #60 tab 11/20/18 losartan 100 mg tablet 100 mg PO QDAY #90 tab 11/27/18 warfarin 1 mg tablet 1 mg PO .COMPLEX #180 tab 01/24/19 Amlodipine Besylate [Norvasc] 10 mg PO QHS 02/19/19 Atorvastatin Calcium [Lipitor] 40 mg PO QHS 02/19/19 metoprolol tartrate 25 mg tablet 25 mg PO BID #180 tab 02/23/19 Enoxaparin Sodium [Lovenox] 100 mg SQ BID 4 Days #8 syringe 03/02/19 The following prescriptions were given: Enoxaparin Sodium [Lovenox] 100 mg SQ BID 4 Days #8 syringe Transmission Status: Pending to [facility] Orders to be completed after discharge: 12 Lead EKG [CVS] Time Frame: 02/19/19, Facility: [facility], Location: Cardiovascular Services Basic Metabolic Profile (BMP) Time Frame: 02/19/19, Facility: [facility], Location: Laboratory CBC-Complete Blood Cnt No Diff Time Frame: 02/19/19, Facility: [facility], Location: Laboratory Prothrombin Time w/INR Time Frame: 02/26/19, Facility: [facility], Location: Laboratory Primary Care Physician: Camilo Villavicencio [Primary Care Provider] - Test Results: Test results from this visit will be discussed in further detail at your follow- up appointment, if applicable. Please Follow Up With: Pedro Stokes MD When: Please call to schedule 2 week follow up appointment. [phone] Please Follow Up With: Kameron García MD When: early next week for INR check
--- NOTE | 2019-03-02 10:56 | DS.PCM_ITS ---
Discharge Date and Diagnosis Date of Admission: 02/26/19 Date of Discharge: 03/02/19 - Primary Discharge Diagnosis Active and Suspected Problems (Last Reviewed 02/01/19 @ 13:42 by Xi Lorenzo) Ventral incisional hernia (Acute) - Secondary Discharge Diagnosis Chronic Problems (Last Reviewed 02/01/19 @ 13:42 by Xi Lorenzo) Hyperlipidemia (Chronic) Nonrheumatic aortic (valve) stenosis (Chronic) prison current use of anticoagulant (Chronic) Hospital Course and Treatment Operations: herniorrhaphy Procedures: None Summary of Care Provided: The patient is a 54 year old M presented for ventral hernia repair with mesh. This hernia repair was elective. His preoperative INR had fallen to below a safe level at 1.8. Hernia repair was performed and afterwards the patient was placed on a heparin drip in accordance with recommendations from cardiology. The patient was continued on heparin drip while his Coumadin was resumed. By the time his INR was rising back up he was discharged home on Lovenox in order to follow-up with cardiology for INR check. It was recommended that he stay on a heparin drip while his INR was returning to therapeutic levels due to his mechanical heart valve. - Physical Exam Vital Signs Temp Pulse Resp BP Pulse Ox 97.9 F 61 18 113/83 H 97 03/02/19 07:35 03/02/19 08:57 03/02/19 07:35 03/02/19 08:57 03/02/19 07:35 Oxygen Flow Rate (L/min) 1 Oxygen Delivery Method Room Air Weight: 229 lb Body Mass Index (BMI) 36.9 Intake and Output for Last 24 Hours 02/28/19 03/01/19 03/02/19 23:59 23:59 23:59 Intake Total 1180.2 / 1741.2 2301 / 2809 508 / 508 Output Total 1850 / 2500 950 / 1450 1300 / 1300 Balance -669.8 / -758.8 1351 / 1359 -792 / -792 Laboratory Tests Past 24 Hrs 03/01/19 03/02/19 03/02/19 12:17 06:10 06:10 PT 21.1 H INR 1.8 APTT 59.0 H 60.3 H Discharge Diet: Light diet - advance as tolerated Discharge Activity: Return to Normal Activity, May Shower Additional Activity Instructions:: Climbing stairs is fine, walking is encouraged. Sitting in bed may be uncomfortable. Sitting up using your lateral muscles (sitting up sideways) is usually more comfortable. Pain medications may cause nausea, you should typically eat light foods as you take your pain medications. Pain medications may also cause constipation. If you have difficulty with this, discuss with your doctor. Call your doctor if your incision/area has: Continuous Slow Oozing, Sudden Increased Bleeding, Increased Pain/ Swelling, Increased Redness, Foul Smelling Discharge Call your doctor if you observe: Fever of 101 or Higher Suture Line Care: Avoid Pulling/Pushing, Avoid Pinching/Bending Cleanse incision/area with: Soap & Water Home Medications: Medications to take at Discharge warfarin 5 mg tablet 5 mg PO QDAY #60 tab 11/20/18 losartan 100 mg tablet 100 mg PO QDAY #90 tab 11/27/18 warfarin 1 mg tablet 1 mg PO .COMPLEX #180 tab 01/24/19 Amlodipine Besylate [Norvasc] 10 mg PO QHS 02/19/19 Atorvastatin Calcium [Lipitor] 40 mg PO QHS 02/19/19 metoprolol tartrate 25 mg tablet 25 mg PO BID #180 tab 02/23/19 Enoxaparin Sodium [Lovenox] 100 mg SQ BID 4 Days #8 syringe 03/02/19 Following Prescrptions Were Given to Patient: Enoxaparin Sodium [Lovenox] 100 mg SQ BID 4 Days #8 syringe Transmission Status: Received by [facility] Other Amb Orders: 12 Lead EKG [CVS] Time Frame: 02/19/19, Facility: [facility], Location: Cardiovascular Services Basic Metabolic Profile (BMP) Time Frame: 02/19/19, Facility: [facility], Location: Laboratory CBC-Complete Blood Cnt No Diff Time Frame: 02/19/19, Facility: [facility], Location: Laboratory Prothrombin Time w/INR Time Frame: 02/26/19, Facility: [facility], Location: Laboratory Primary Care Physician: Cmailo Villavicencio [Primary Care Provider] - Please Follow Up With: Pedro Stokes MD When: Please call to schedule 2 week follow up appointment. [phone] Please Follow Up With: Kameron García MD When: early next week for INR check Medical Necessity - Tobacco Use Smoking Status: Never smoker Meaningful Use Info Meaningful Use Diagnoses (Choose all that apply): None applicable
[2019-03-02 12:31] VITALS: BP 113/83; PULSE 61; RESP 18; TEMP 36.6; O2SAT 97
== END 2019-03-02 12:31 | disposition home or self-care (01) | DRG 355 ==
LOC: SDC 13:19 → MS3 02-27 14:17
PROVIDERS: Admitting Provider Surgery; Family Provider Family Medicine; PCP Family Medicine; Referring Provider Surgery; Visit Provider Surgery
DX: K43.2 Incisional hernia without obstruction or gangrene (principal); E78.5 Hyperlipidemia, unspecified; Z79.01 Long term (current) use of anticoagulants; Z95.2 Presence of prosthetic heart valve; E66.9 Obesity, unspecified; Z68.36 Body mass index [BMI] 36.0-36.9, adult
CPT/HCPCS: 36415; 80048; 80076; 85025; 85027; 85610; 85730; 88302; 93005; C1781; J7030; J7120; A4216; J2405

== ENCOUNTER 2019-03-12 11:05 | Outpatient (RCR) | payer OTHER, SELFPAY ==
[2019-02-22 08:04] VITALS: BMI 37.1
[2019-02-26 13:32] VITALS: BMI 36.9
[2019-03-05 14:17] LABS: International Normalized Ratio 2.5; Prothrombin Time (Protime)PT. 27.3 SECONDS (11.7-14.9)
[2019-03-12 12:56] LABS: Hematocrit 41.2 % (40-54); Mean Corpuscular Hgb 29.8 pg (27.0-32.0); Mean Corpuscular Volume 87.7 fL (80-94); Mean Platelet Vol. 9.6 fl (6.2-12.0); Platelet Count 239 K/mm3 (150-450); RBC Distribution Width CV 12.3 % (11.6-14.6); RBC Distribution Width SD 39.8 fl (35.1-43.9); White Blood Count 5.3 K/mm3 (4.4-11.0)
[2019-03-12 13:04] LABS: International Normalized Ratio 2.2; Prothrombin Time (Protime)PT. 24.8 SECONDS (11.7-14.9)
[2019-03-12 13:17] LABS: Anion Gap 3 (5-15); BUN 16 mg/dL (7-18); BUN/Creat Ratio 15.4 RATIO (10-20); Calcium,Total 9.1 mg/dL (8.5-10.1); Chloride 108 mmol/L (98-107); Creatinine, Serum 1.04 mg/dL (0.70-1.30); EST Glomerular Filtration Rate 79 mL/min (>60); Est Glom Filt Rate - Afr Amer 96 mL/min (>60); Glucose 129 mg/dL (74-106); Potassium 4.1 mmol/L (3.5-5.1); Sodium Level 142 mmol/L (136-145)
== END 2019-03-12 12:00 | disposition home or self-care (01) ==
LOC: LAB 11:05
PROVIDERS: Anesthesiology; Family Provider Family Medicine; PCP Family Medicine; Referring Provider Internal Medicine Cardiovascular Disease; Visit Provider Internal Medicine Cardiovascular Disease
DX: Z79.01 Long term (current) use of anticoagulants (principal)
CPT/HCPCS: 36415; 80048; 85027; 85610

== ENCOUNTER 2019-04-16 13:14 | Outpatient (RCR) | payer OTHER, SELFPAY ==
[2019-02-26 13:32] VITALS: BMI 36.9
[2019-03-29 10:45] LABS: International Normalized Ratio 4.3
[2019-03-29 10:59] LABS: Prothrombin Time (Protime)PT. 41.9 SECONDS (11.7-14.9)
[2019-04-04 09:50] LABS: International Normalized Ratio 3.2; Prothrombin Time (Protime)PT. 32.7 SECONDS (11.7-14.9)
[2019-04-04 10:26] LABS: AST(SGOT) 18 U/L (15-37); Alanine Aminotransfer ALT/SGPT 36 U/L (16-61); Albumin, Serum 3.5 g/dL (3.2-5.0); Alkaline Phosphatase 73 U/L (45-117); Bilirubin, Direct 0.17 mg/dL (0.00-0.30); Cholesterol 75 mg/dL (200); Globulin 3.4 g/dL (2.2-4.2); High Density Lipoprotein 26 mg/dL; Protein, Total 6.9 g/dL (6.4-8.2); Triglycerides 134 mg/dL; Very Low Density Lipoprotein 27 mg/dL (5-40)
[2019-04-16 15:06] LABS: Prothrombin Time (Protime)PT. 22.8 SECONDS (11.7-14.9)
== END 2019-04-16 14:00 | disposition home or self-care (01) ==
LOC: LAB 13:14
PROVIDERS: Physician Assistant Medical; Family Provider Family Medicine; PCP Family Medicine; Referring Provider Internal Medicine Cardiovascular Disease; Visit Provider Internal Medicine Cardiovascular Disease
DX: Z79.01 Long term (current) use of anticoagulants (principal)
CPT/HCPCS: 36415; 80061; 80076; 85610

== ENCOUNTER 2019-05-16 17:08 | Outpatient (RCR) | payer OTHER, SELFPAY ==
[2019-02-26 13:32] VITALS: BMI 36.9
[2019-05-02 17:19] LABS: International Normalized Ratio 2.5; Prothrombin Time (Protime)PT. 27.2 SECONDS (11.7-14.9)
[2019-05-16 17:41] LABS: International Normalized Ratio 2.8; Prothrombin Time (Protime)PT. 29.7 SECONDS (11.7-14.9)
== END 2019-05-16 18:00 | disposition home or self-care (01) ==
LOC: LAB 17:08
PROVIDERS: Family Provider Family Medicine; PCP Family Medicine; Referring Provider Internal Medicine Cardiovascular Disease; Visit Provider Internal Medicine Cardiovascular Disease
DX: Z79.01 Long term (current) use of anticoagulants (principal)
CPT/HCPCS: 36415; 85610

== ENCOUNTER 2019-06-12 16:06 | Outpatient (RCR) | payer OTHER, SELFPAY ==
[2019-02-26 13:32] VITALS: BMI 36.9
[2019-06-12 16:48] LABS: International Normalized Ratio 2.7; Prothrombin Time (Protime)PT. 28.5 SECONDS (11.7-14.9)
== END 2019-06-12 18:00 | disposition home or self-care (01) ==
LOC: LAB 16:06
PROVIDERS: Family Provider Family Medicine; PCP Family Medicine; Referring Provider Internal Medicine Cardiovascular Disease; Visit Provider Internal Medicine Cardiovascular Disease
DX: Z79.01 Long term (current) use of anticoagulants (principal)
CPT/HCPCS: 36415; 85610

== ENCOUNTER → 2019-06-29 17:14 | Outpatient (CLI) | payer OTHER, SELFPAY ==
[2019-02-26 13:32] VITALS: BMI 36.9
--- NOTE | 2019-06-29 17:19 | CT_ITS ---
STUDY: CTA CHEST REASON FOR EXAM: Male, 54 years old. History of aneurysmal repair RADIATION DOSAGE (If Supplied By Facility): CTDIvol = ( 15.41 ) mGy, DLP = ( 684.92 ) mGycm TECHNIQUE: The examination was performed with the intravenous administration of 100 ML ISOVUE 370. Post-processing of the angiographic images was performed, with multiplanar reformation and 3D reconstruction. Individualized dose optimization techniques were used for this CT. COMPARISON: CT chest October 10, 2017 FINDINGS: There is limited enhancement of the main pulmonary artery and right and left pulmonary arteries. There is limited enhancement of the bilateral peripheral pulmonary arteries. There is no demonstrated centrally located pulmonary embolism. Aorta is tortuous. There is postoperative change anterior to the ascending thoracic aorta. The ascending thoracic aorta measures 3.8 x 3.4 cm. This is less than prior study when it measured 4.2 x 4.1 cm. The aorta is tortuous. The descending thoracic aorta measures 2.8 x 2.8 cm prior study measuring 2.7 x 2.5 cm. The aorta at the hiatus measures 2.1 x 2.3 cm. There is no demonstrated aortic dissection. There is mild cardiac enlargement. There is postoperative valve at the level of the aortic valve. There are visualized mediastinal lymph nodes, which are within normal size limits, and with normal morphology. Normal hilar regions. Normal visualized trachea and bronchi. There is a small focus of fibrotic change in the medial aspect of the left lower lobe similar to prior study. This trace middle lobe atelectasis similar to prior study. Normal pleura. Sternotomy wires are seen midline. There are degenerative changes of thoracic spine. There is a minimal hiatal hernia. There is a visualized hernia mesh mild edema and diastases of the superior rectus muscle with herniation of fat approximately the level of the left hepatic lobe image #100 which is similar to the prior study January 10, 2019. Since prior study there is lesser herniation of fat since there is been a partial repair. CT/CTA Chest W/WO Contrast IMPRESSION: Lesser caliber of the ascending thoracic aorta when compared to the prior study. Visualized aortic cardiac valve replacement. No evidence of periaortic hematoma Status post sternotomy. Minimal left lower lobe fibrotic change. Minimal hiatal hernia Hernia mesh in the anterior abdominal wall ventral hernia repair. Persistent more cephalad smaller opening in the fascial wall with minimal fat herniation. Electronically Signed: Eunice Sheikh MD at 10:04 EST Tel , Service support ,
--- NOTE | 2019-06-29 17:33 | CT_ITS ---
STUDY: CTA CHEST REASON FOR EXAM: Male, 54 years old. History of aneurysmal repair RADIATION DOSAGE (If Supplied By Facility): CTDIvol = ( 15.41 ) mGy, DLP = ( 684.92 ) mGycm TECHNIQUE: The examination was performed with the intravenous administration of 100 ML ISOVUE 370. Post-processing of the angiographic images was performed, with multiplanar reformation and 3D reconstruction. Individualized dose optimization techniques were used for this CT. COMPARISON: CT chest October 10, 2017 FINDINGS: There is limited enhancement of the main pulmonary artery and right and left pulmonary arteries. There is limited enhancement of the bilateral peripheral pulmonary arteries. There is no demonstrated centrally located pulmonary embolism. Aorta is tortuous. There is postoperative change anterior to the ascending thoracic aorta. The ascending thoracic aorta measures 3.8 x 3.4 cm. This is less than prior study when it measured 4.2 x 4.1 cm. The aorta is tortuous. The descending thoracic aorta measures 2.8 x 2.8 cm prior study measuring 2.7 x 2.5 cm. The aorta at the hiatus measures 2.1 x 2.3 cm. There is no demonstrated aortic dissection. There is mild cardiac enlargement. There is postoperative valve at the level of the aortic valve. There are visualized mediastinal lymph nodes, which are within normal size limits, and with normal morphology. Normal hilar regions. Normal visualized trachea and bronchi. There is a small focus of fibrotic change in the medial aspect of the left lower lobe similar to prior study. This trace middle lobe atelectasis similar to prior study. Normal pleura. Sternotomy wires are seen midline. There are degenerative changes of thoracic spine. There is a minimal hiatal hernia. There is a visualized hernia mesh mild edema and diastases of the superior rectus muscle with herniation of fat approximately the level of the left hepatic lobe image #100 which is similar to the prior study January 10, 2019. Since prior study there is lesser herniation of fat since there is been a partial repair. CT/Coronals Sag Multi Obl 3-D Rec IMPRESSION: Lesser caliber of the ascending thoracic aorta when compared to the prior study. Visualized aortic cardiac valve replacement. No evidence of periaortic hematoma Status post sternotomy. Minimal left lower lobe fibrotic change. Minimal hiatal hernia Hernia mesh in the anterior abdominal wall ventral hernia repair. Persistent more cephalad smaller opening in the fascial wall with minimal fat herniation. Electronically Signed: Eunice Sheikh MD at 10:04 EST Tel , Service support ,
== END ==
PROVIDERS: Family Provider Family Medicine; PCP Family Medicine; Referring Provider Thoracic Surgery (Cardiothoracic Vascular Surgery); Visit Provider Thoracic Surgery (Cardiothoracic Vascular Surgery)
DX: Z98.890 Other specified postprocedural states (principal)
CPT/HCPCS: 71275; 76377; Q9967

== ENCOUNTER 2019-07-09 15:08 | Outpatient (RCR) | payer OTHER, SELFPAY ==
[2019-02-26 13:32] VITALS: BMI 36.9
[2019-07-09 16:01] LABS: International Normalized Ratio 2.4; Prothrombin Time (Protime)PT. 26.1 SECONDS (11.7-14.9)
== END 2019-07-09 18:00 | disposition home or self-care (01) ==
LOC: LAB 15:08
PROVIDERS: Family Provider Family Medicine; PCP Family Medicine; Referring Provider Internal Medicine Cardiovascular Disease; Visit Provider Internal Medicine Cardiovascular Disease
DX: Z79.01 Long term (current) use of anticoagulants (principal)
CPT/HCPCS: 36415; 85610

== ENCOUNTER 2019-08-24 15:37 | Outpatient (RCR) | payer OTHER, SELFPAY ==
[2019-02-26 13:32] VITALS: BMI 36.9
[2019-08-03 16:50] LABS: International Normalized Ratio 2.4; Prothrombin Time (Protime)PT. 26.3 SECONDS (11.7-14.9)
[2019-08-24 16:47] LABS: International Normalized Ratio 2.7; Prothrombin Time (Protime)PT. 28.9 SECONDS (11.7-14.9)
== END 2019-08-24 18:00 | disposition home or self-care (01) ==
LOC: LAB 15:37
PROVIDERS: Family Provider Family Medicine; PCP Family Medicine; Referring Provider Internal Medicine Cardiovascular Disease; Visit Provider Internal Medicine Cardiovascular Disease
DX: Z79.01 Long term (current) use of anticoagulants (principal)
CPT/HCPCS: 36415; 85610

== ENCOUNTER 2019-09-12 13:37 | Outpatient (RCR) | payer OTHER, SELFPAY ==
[2019-02-26 13:32] VITALS: BMI 36.9
[2019-09-12 15:01] LABS: International Normalized Ratio 2.5; Prothrombin Time (Protime)PT. 26.8 SECONDS (11.7-14.9)
== END 2019-09-12 18:00 | disposition home or self-care (01) ==
LOC: LAB 13:37
PROVIDERS: Family Provider Family Medicine; PCP Family Medicine; Referring Provider Internal Medicine Cardiovascular Disease; Visit Provider Internal Medicine Cardiovascular Disease
DX: Z79.01 Long term (current) use of anticoagulants (principal)
CPT/HCPCS: 36415; 85610

== ENCOUNTER 2019-10-17 14:15 | Outpatient (RCR) | payer OTHER, SELFPAY ==
[2019-02-26 13:32] VITALS: BMI 36.9
[2019-10-17 15:08] LABS: International Normalized Ratio 3.1; Prothrombin Time (Protime)PT. 32.4 SECONDS (11.7-14.9)
== END 2019-10-17 18:00 | disposition home or self-care (01) ==
LOC: LAB 14:15
PROVIDERS: Family Provider Family Medicine; PCP Family Medicine; Referring Provider Internal Medicine Cardiovascular Disease; Visit Provider Internal Medicine Cardiovascular Disease
DX: Z79.01 Long term (current) use of anticoagulants (principal); Z95.2 Presence of prosthetic heart valve
CPT/HCPCS: 36415; 85610

== ENCOUNTER 2019-11-15 14:18 | Outpatient (RCR) | payer OTHER, SELFPAY ==
[2019-02-26 13:32] VITALS: BMI 36.9
[2019-11-15 15:14] LABS: Prothrombin Time (Protime)PT. 30.8 SECONDS (11.7-14.9)
== END 2019-11-22 18:00 | disposition home or self-care (01) ==
LOC: LAB 14:18
PROVIDERS: Family Provider Family Medicine; PCP Family Medicine; Referring Provider Internal Medicine Cardiovascular Disease; Visit Provider Internal Medicine Cardiovascular Disease
DX: Z79.01 Long term (current) use of anticoagulants (principal); Z95.2 Presence of prosthetic heart valve
CPT/HCPCS: 36415; 85610

== ENCOUNTER 2020-01-07 16:14 | Outpatient (RCR) | payer OTHER, SELFPAY ==
[2019-02-26 13:32] VITALS: BMI 36.9
[2020-01-07 17:04] LABS: Prothrombin Time (Protime)PT. 40.1 SECONDS (11.7-14.9)
[2020-01-07 17:13] LABS: International Normalized Ratio 4.2
== END 2020-01-07 18:00 | disposition home or self-care (01) ==
LOC: LAB 16:14
PROVIDERS: Family Provider Family Medicine; PCP Family Medicine; Referring Provider Internal Medicine Cardiovascular Disease; Visit Provider Internal Medicine Cardiovascular Disease
DX: Z79.01 Long term (current) use of anticoagulants (principal); Z95.2 Presence of prosthetic heart valve
CPT/HCPCS: 36415; 85610

== ENCOUNTER 2020-01-30 13:32 | Outpatient (RCR) | payer OTHER, SELFPAY ==
[2020-01-10 11:25] VITALS: BMI 37.1
[2020-01-30 14:14] LABS: Prothrombin Time (Protime)PT. 35.6 SECONDS (11.7-14.9)
[2020-01-30 14:21] LABS: International Normalized Ratio 3.6
== END 2020-01-30 18:00 | disposition home or self-care (01) ==
LOC: LAB 13:32
PROVIDERS: Family Provider Family Medicine; PCP Family Medicine; Referring Provider Internal Medicine Cardiovascular Disease; Visit Provider Internal Medicine Cardiovascular Disease
DX: Z95.2 Presence of prosthetic heart valve (principal); Z79.01 Long term (current) use of anticoagulants
CPT/HCPCS: 36415; 85610

== ENCOUNTER 2020-03-12 15:06 | Outpatient (RCR) | payer OTHER, SELFPAY ==
[2020-01-10 11:25] VITALS: BMI 37.1
[2020-02-26 17:45] LABS: Prothrombin Time (Protime)PT. 30.8 SECONDS (11.7-14.9)
[2020-03-12 16:41] LABS: International Normalized Ratio 3.2
== END 2020-03-12 18:00 | disposition home or self-care (01) ==
LOC: LAB 15:06
PROVIDERS: Family Provider Family Medicine; PCP Family Medicine; Referring Provider Internal Medicine Cardiovascular Disease; Visit Provider Internal Medicine Cardiovascular Disease
DX: Z79.01 Long term (current) use of anticoagulants (principal); Z95.2 Presence of prosthetic heart valve
CPT/HCPCS: 36415; 85610

== ENCOUNTER 2020-04-01 13:49 | Outpatient (RCR) | payer OTHER, SELFPAY ==
[2020-01-10 11:25] VITALS: BMI 37.1
[2020-04-01 15:16] LABS: International Normalized Ratio 3.6
== END 2020-04-01 18:00 | disposition home or self-care (01) ==
LOC: LAB 13:49
PROVIDERS: Family Provider Family Medicine; PCP Family Medicine; Referring Provider Internal Medicine Cardiovascular Disease; Visit Provider Internal Medicine Cardiovascular Disease
DX: Z95.2 Presence of prosthetic heart valve (principal); Z79.01 Long term (current) use of anticoagulants
CPT/HCPCS: 36415; 85610

== ENCOUNTER 2020-05-15 15:16 | Outpatient (RCR) | payer OTHER, SELFPAY ==
[2020-01-10 11:25] VITALS: BMI 37.1
[2020-04-28 16:27] LABS: International Normalized Ratio 3.5
[2020-05-15 16:43] LABS: International Normalized Ratio 3.5
== END 2020-05-15 18:00 | disposition home or self-care (01) ==
LOC: LAB 15:16
PROVIDERS: Family Provider Family Medicine; PCP Family Medicine; Referring Provider Internal Medicine Cardiovascular Disease; Visit Provider Internal Medicine Cardiovascular Disease
DX: Z79.01 Long term (current) use of anticoagulants (principal); Z95.2 Presence of prosthetic heart valve
CPT/HCPCS: 36415; 85610

== ENCOUNTER 2020-06-18 16:26 | Outpatient (RCR) | payer OTHER, SELFPAY ==
[2020-01-10 11:25] VITALS: BMI 37.1
[2020-06-18 17:26] LABS: International Normalized Ratio 3.4; Prothrombin Time (Protime)PT. 34.4 SECONDS (11.7-14.9)
== END 2020-06-18 18:00 | disposition home or self-care (01) ==
LOC: LAB 16:26
PROVIDERS: Family Provider Family Medicine; PCP Family Medicine; Referring Provider Internal Medicine Cardiovascular Disease; Visit Provider Internal Medicine Cardiovascular Disease
DX: Z95.2 Presence of prosthetic heart valve (principal); Z79.01 Long term (current) use of anticoagulants
CPT/HCPCS: 36415; 85610

== ENCOUNTER 2020-08-21 09:21 | Outpatient (RCR) | payer OTHER, SELFPAY ==
[2020-01-10 11:25] VITALS: BMI 37.1
[2020-07-24 16:01] LABS: International Normalized Ratio 3.1; Prothrombin Time (Protime)PT. 31.8 SECONDS (11.7-14.9)
[2020-08-21 10:29] LABS: International Normalized Ratio 2.7; Prothrombin Time (Protime)PT. 27.9 SECONDS (11.7-14.9)
== END 2020-08-21 18:00 | disposition home or self-care (01) ==
LOC: LAB 09:21
PROVIDERS: Family Provider Family Medicine; PCP Family Medicine; Referring Provider Internal Medicine Cardiovascular Disease; Visit Provider Internal Medicine Cardiovascular Disease
DX: Z95.2 Presence of prosthetic heart valve (principal); Z79.01 Long term (current) use of anticoagulants
CPT/HCPCS: 36415; 85610

== ENCOUNTER 2020-09-18 14:28 | Outpatient (RCR) | payer OTHER, SELFPAY ==
[2020-01-10 11:25] VITALS: BMI 37.1
[2020-09-18 15:33] LABS: Prothrombin Time (Protime)PT. 37.7 SECONDS (11.7-14.9)
[2020-09-18 15:40] LABS: International Normalized Ratio 3.9
== END 2020-09-18 18:00 | disposition home or self-care (01) ==
LOC: LAB 14:28
PROVIDERS: Family Provider Family Medicine; PCP Family Medicine; Referring Provider Internal Medicine Cardiovascular Disease; Visit Provider Internal Medicine Cardiovascular Disease
DX: Z95.2 Presence of prosthetic heart valve (principal); Z79.01 Long term (current) use of anticoagulants
CPT/HCPCS: 36415; 85610

== ENCOUNTER 2020-10-09 17:00 | Outpatient (RCR) | payer OTHER, SELFPAY ==
[2020-01-10 11:25] VITALS: BMI 37.1
[2020-10-03 18:36] LABS: AST(SGOT) 25 U/L (15-37); Alanine Aminotransfer ALT/SGPT 42 U/L (16-61); Alkaline Phosphatase 61 U/L (45-117); Bilirubin, Direct 0.19 mg/dL (0.00-0.30); Cholesterol 102 mg/dL (200); Globulin 3.4 g/dL (2.2-4.2); High Density Lipoprotein 27 mg/dL; Protein, Total 7.4 g/dL (6.4-8.2); Triglycerides 142 mg/dL; Very Low Density Lipoprotein 28 mg/dL (5-40)
[2020-10-09 17:40] LABS: Prothrombin Time (Protime)PT. 30.7 SECONDS (11.7-14.9)
== END 2020-10-09 18:00 | disposition home or self-care (01) ==
LOC: LAB 17:00
PROVIDERS: Physician Assistant Medical; Family Provider Family Medicine; PCP Family Medicine; Referring Provider Internal Medicine Cardiovascular Disease; Visit Provider Internal Medicine Cardiovascular Disease
DX: Z79.01 Long term (current) use of anticoagulants (principal); Z95.2 Presence of prosthetic heart valve; E78.00 Pure hypercholesterolemia, unspecified
CPT/HCPCS: 36415; 80061; 80076; 85610

== ENCOUNTER 2020-11-24 16:22 | Outpatient (RCR) | payer OTHER, SELFPAY ==
[2020-01-10 11:25] VITALS: BMI 37.1
[2020-11-24 17:47] LABS: International Normalized Ratio 2.7; Prothrombin Time (Protime)PT. 27.8 SECONDS (11.7-14.9)
== END 2020-11-24 18:00 | disposition home or self-care (01) ==
LOC: LAB 16:22
PROVIDERS: Family Provider Family Medicine; PCP Family Medicine; Referring Provider Internal Medicine Cardiovascular Disease; Visit Provider Internal Medicine Cardiovascular Disease
DX: Z95.2 Presence of prosthetic heart valve (principal); Z79.01 Long term (current) use of anticoagulants
CPT/HCPCS: 36415; 85610

== ENCOUNTER 2020-12-23 14:40 | Outpatient (RCR) | payer OTHER, SELFPAY ==
[2020-01-10 11:25] VITALS: BMI 37.1
[2020-12-23 15:18] LABS: International Normalized Ratio 3.1; Prothrombin Time (Protime)PT. 30.9 SECONDS (11.7-14.9)
== END 2020-12-23 18:00 | disposition home or self-care (01) ==
LOC: LAB 14:40
PROVIDERS: Family Provider Family Medicine; PCP Family Medicine; Referring Provider Internal Medicine Cardiovascular Disease; Visit Provider Internal Medicine Cardiovascular Disease
DX: Z95.2 Presence of prosthetic heart valve (principal); Z79.01 Long term (current) use of anticoagulants
CPT/HCPCS: 36415; 85610

== ENCOUNTER 2021-02-02 12:57 | Outpatient (RCR) | payer OTHER, SELFPAY ==
[2020-01-10 11:25] VITALS: BMI 37.1
[2021-02-02 14:36] LABS: International Normalized Ratio 3.2; Prothrombin Time (Protime)PT. 31.7 SECONDS (11.7-14.9)
== END 2021-02-02 18:00 | disposition home or self-care (01) ==
LOC: LAB 12:57
PROVIDERS: Family Provider Family Medicine; PCP Family Medicine; Referring Provider Internal Medicine Cardiovascular Disease; Visit Provider Internal Medicine Cardiovascular Disease
DX: Z95.2 Presence of prosthetic heart valve (principal); Z79.01 Long term (current) use of anticoagulants
CPT/HCPCS: 36415; 85610

== ENCOUNTER 2021-03-02 15:11 | Outpatient (RCR) | payer OTHER, SELFPAY ==
[2020-01-10 11:25] VITALS: BMI 37.1
[2021-03-02 17:03] LABS: International Normalized Ratio 2.7; Prothrombin Time (Protime)PT. 28.3 SECONDS (11.7-14.9)
== END 2021-03-02 18:00 | disposition home or self-care (01) ==
LOC: LAB 15:11
PROVIDERS: Family Provider Family Medicine; PCP Family Medicine; Referring Provider Internal Medicine Cardiovascular Disease; Visit Provider Internal Medicine Cardiovascular Disease
DX: Z95.2 Presence of prosthetic heart valve (principal); Z79.01 Long term (current) use of anticoagulants
CPT/HCPCS: 36415; 85610

== ENCOUNTER → 2021-03-23 13:03 | Outpatient (CLI) | payer OTHER, SELFPAY ==
[2021-03-10 08:18] VITALS: BMI 38.2
--- NOTE | 2021-03-23 13:04 | CDU_ITS ---
Reason For Study: TIA Rt. Velocities/BP Lt. Velocities/BP Prox CCA 89.1/20 cm/sec. Prox CCA 80.6/17.3 cm/sec. Mid CCA 72.1/16 cm/sec. Mid CCA 79.6/22 cm/sec. Dist CCA 60.8/16.8 cm/sec. Dist CCA 72.1/19.2 cm/sec. Prox ICA 68.5/19 cm/sec. Prox ICA 86.3/23.9 cm/sec. Mid ICA 41.3/17.7 cm/sec. Mid ICA 40.4/17.7 cm/sec. Dist ICA 59.6/29.1 cm/sec. Dist ICA 57.8/29.1 cm/sec. Rt. ICA/CCA = 0.95. Lt. ICA/CCA = 1.08. Prox ECA 90.5/12.4 cm/sec. Prox ECA 89.1/15.4 cm/sec. Rt. Vert. 35.4/9.2 cm/sec. Lt. Vert. 45.6/21.2 cm/sec. Right Extracranial There is intimal thickening but no significant atherosclerotic plaque noted in the right common carotid artery. There is intimal thickening but no significant atherosclerotic plaque noted in the right internal carotid artery. There is intimal thickening but no significant atherosclerotic plaque noted in the right external carotid artery. Antegrade flow is noted in the right vertebral artery. Left Extracranial There is intimal thickening but no significant atherosclerotic plaque noted in the left common carotid artery. There is intimal thickening but no significant atherosclerotic plaque noted in the left internal carotid artery. There is intimal thickening but no significant atherosclerotic plaque noted in the left external carotid artery. Antegrade flow is noted in the left vertebral artery. Procedure Carotid Duplex 47476. This is a Carotid Duplex examination using B-mode, color flow and specral Doppler. Exam performed in department. VL/Carotid Duplex Ultrasound Interpretation Summary Mild (<50%) stenosis right extracranial internal carotid. Mild (<50%) stenosis left extracranial internal carotid. Flow within the vertebral arteries is antegrade bilaterally. Ordering Physician: Clifford Mendoza Referring Physician: Camilo Villavicencio Performed By: Vanessa Leblanc RVT
--- NOTE | 2021-03-23 13:04 | ECHOCS_ITS ---
Reason For Study: Emboli Procedure This was a 2D Doppler, Color Flow transthoracic echocardiogram. Contrast injection was performed. Exam performed in department. Left Ventricle Normal LV size. Severe concentric left ventricular hypertrophy. Left ventricular systolic function is normal. The estimated ejection fraction is 65 %. Stage 1 diastolic dysfunction. No regional wall motion abnormalities noted. Right Ventricle Normal RV size. Normal systolic function. Atria Normal left atrium. Normal right atrium. Mitral Valve Normal mitral valve. Tricuspid Valve Normal tricuspid valve. Mild (1+) tricuspid valve insufficiency. Pulmonary artery systolic pressure is 33 mmHg. Aortic Valve Peak aortic valve gradient 13 mmHg. Mean aortic valve gradient 8 mmHg. Bioprosthetic aortic valve. Pulmonic Valve Normal pulmonic valve. Great Vessels Normal aortic root. The pulmonary artery is normal size. Normal inferior vena cava. Pericardium/Pleural No pericardial effusion. Medication Diluted definity 3ml given slow IV push to enhance endocardial definition. MMode/2D Measurements & Calculations LVIDd: 4.8 cm IVSd: 1.8 cm LVOT diam: 2.2 cm LVIDs: 2.7 cm LVPWd: 1.8 cm RVDd: 4.0 cm FS: 44.7 % LVOT area: 3.9 cm2 Ao root diam: 3.9 cm LAV(MOD-bp): 36.9 ml LVAd ap4: 31.3 cm2 LAV(MOD-bp) Indexed: 17.4 ml/m2 LVLd ap4: 8.4 cm LAV(MOD-sp2): 43.2 ml EDV(MOD-sp4): 96.3 ml LAV(MOD-sp4): 29.4 ml EDV(sp4-el): 99.2 ml LVAs ap4: 16.5 cm2 LVLs ap4: 6.6 cm ESV(MOD-sp4): 37.0 ml ESV(sp4-el): 35.0 ml EF(MOD-sp4): 61.6 % EF(sp4-el): 64.7 % SV(MOD-sp4): 59.3 ml SV(sp4-el): 64.1 ml LA A4 area: 13.4 cm2 LA dimension(2D): 3.0 cm RA A4 area: 15.6 cm2 Doppler Measurements & Calculations MV E max santos: 68.4 cm/sec Lat Peak E' Santos: 7.0 cm/sec Med Peak E' Santos: 5.6 cm/sec MV A max santos: 84.2 cm/sec E/E' lat: 9.8 E/E' med: 12.3 MV E/A: 0.81 Ao V2 max: 186.4 cm/sec LV V1 max: 130.2 cm/sec SV(LVOT): 99.7 ml Ao max P.9 mmHg LV V1 max P.8 mmHg Ao V2 mean: 134.2 cm/sec LV V1 mean P.9 mmHg Ao mean P.9 mmHg LV V1 mean: 94.9 cm/sec Ao V2 VTI: 34.5 cm LV V1 VTI: 25.5 cm MARTINEZ(I,D): 2.9 cm2 MARTINEZ(V,D): 2.7 cm2 PA V2 max: 87.6 cm/sec TR max santos: 265.3 cm/sec TR max P.2 mmHg ECHO/Echo Complete W/ Contrast Interpretation Summary Normal LV size. Severe concentric left ventricular hypertrophy. Left ventricular systolic function is normal. The estimated ejection fraction is 65 %. Stage 1 diastolic dysfunction. Pulmonary artery systolic pressure is 33 mmHg. Ordering Physician: Cliffodr Mendoza Referring Physician: Camilo Villavicencio Performed By: Angela Galvin, PAULINA, RVT
== END ==
PROVIDERS: PCP Family Medicine; Referring Provider Internal Medicine Cardiovascular Disease; Visit Provider Internal Medicine Cardiovascular Disease
DX: H53.139 Sudden visual loss, unspecified eye (principal); Z95.2 Presence of prosthetic heart valve
CPT/HCPCS: 93306; 93880; Q9957; A4216; C8929; J3490

== ENCOUNTER 2021-05-11 15:44 | Outpatient (RCR) | payer OTHER, SELFPAY ==
[2021-03-25 00:24] VITALS: BMI 37.1
[2021-04-28 17:37] LABS: Prothrombin Time (Protime)PT. 43.5 SECONDS (11.7-14.9)
[2021-04-28 17:43] LABS: International Normalized Ratio 4.7
[2021-04-28 18:20] LABS: AST(SGOT) 26 U/L (15-37); Alanine Aminotransfer ALT/SGPT 45 U/L (16-61); Albumin, Serum 3.7 g/dL (3.2-5.0); Alkaline Phosphatase 61 U/L (45-117); Bilirubin, Direct 0.13 mg/dL (0.00-0.30); Cholesterol 104 mg/dL (200); Globulin 3.7 g/dL (2.2-4.2); High Density Lipoprotein 21 mg/dL; Protein, Total 7.4 g/dL (6.4-8.2); Triglycerides 390 mg/dL; Very Low Density Lipoprotein 78 mg/dL (5-40)
[2021-05-11 17:42] LABS: International Normalized Ratio 3.7; Prothrombin Time (Protime)PT. 35.9 SECONDS (11.7-14.9)
== END 2021-05-24 18:00 | disposition home or self-care (01) ==
LOC: LAB 15:44
PROVIDERS: Family Provider Family Medicine; PCP Family Medicine; Referring Provider Internal Medicine Cardiovascular Disease; Visit Provider Internal Medicine Cardiovascular Disease
DX: E78.5 Hyperlipidemia, unspecified (principal); Z95.2 Presence of prosthetic heart valve; Z79.01 Long term (current) use of anticoagulants; E78.00 Pure hypercholesterolemia, unspecified
CPT/HCPCS: 36415; 80061; 80076; 85610

== ENCOUNTER 2021-06-15 16:50 | Outpatient (RCR) | payer OTHER, SELFPAY ==
[2021-05-24 20:22] VITALS: BMI 37.1
[2021-06-15 17:15] LABS: International Normalized Ratio 3.1; Prothrombin Time (Protime)PT. 31.1 SECONDS (11.7-14.9)
== END 2021-06-23 18:00 | disposition home or self-care (01) ==
LOC: LAB 16:50
PROVIDERS: Family Provider Family Medicine; PCP Family Medicine; Referring Provider Internal Medicine Cardiovascular Disease; Visit Provider Internal Medicine Cardiovascular Disease
DX: Z95.2 Presence of prosthetic heart valve (principal); Z79.01 Long term (current) use of anticoagulants
CPT/HCPCS: 36415; 85610

== ENCOUNTER 2021-07-13 15:16 | Outpatient (RCR) | payer OTHER, SELFPAY ==
[2021-06-24 03:41] VITALS: BMI 37.1
[2021-07-13 16:28] LABS: International Normalized Ratio 3.5; Prothrombin Time (Protime)PT. 34.3 SECONDS (11.7-14.9)
== END 2021-07-25 18:00 | disposition home or self-care (01) ==
LOC: LAB 15:16
PROVIDERS: Family Provider Family Medicine; PCP Family Medicine; Referring Provider Internal Medicine Cardiovascular Disease; Visit Provider Internal Medicine Cardiovascular Disease
DX: Z95.2 Presence of prosthetic heart valve (principal); Z79.01 Long term (current) use of anticoagulants
CPT/HCPCS: 36415; 85610

== ENCOUNTER 2021-09-02 16:47 | Outpatient (RCR) | payer OTHER, SELFPAY ==
[2021-07-26 23:22] VITALS: BMI 37.1
[2021-09-02 17:17] LABS: Prothrombin Time (Protime)PT. 30.1 SECONDS (11.7-14.9)
== END 2021-09-02 23:59 | disposition home or self-care (01) ==
LOC: LAB 16:47
PROVIDERS: Family Provider Family Medicine; PCP Family Medicine; Referring Provider Internal Medicine Cardiovascular Disease; Visit Provider Internal Medicine Cardiovascular Disease
DX: Z95.2 Presence of prosthetic heart valve (principal); Z79.01 Long term (current) use of anticoagulants
CPT/HCPCS: 36415; 85610

== ENCOUNTER 2021-09-28 13:05 | Outpatient (RCR) | payer OTHER, SELFPAY ==
[2021-09-22 09:55] VITALS: BMI 37.1
[2021-09-28 15:10] LABS: International Normalized Ratio 2.7; Prothrombin Time (Protime)PT. 27.6 SECONDS (11.7-14.9)
[2021-09-28 15:32] LABS: AST(SGOT) 24 U/L (15-37); Alanine Aminotransfer ALT/SGPT 37 U/L (16-61); Albumin, Serum 3.6 g/dL (3.2-5.0); Alkaline Phosphatase 63 U/L (45-117); Bilirubin, Direct 0.22 mg/dL (0.00-0.30); Cholesterol 93 mg/dL (200); Globulin 3.7 g/dL (2.2-4.2); High Density Lipoprotein 27 mg/dL; Protein, Total 7.3 g/dL (6.4-8.2); Triglycerides 138 mg/dL; Very Low Density Lipoprotein 28 mg/dL (5-40)
== END 2021-10-22 18:00 | disposition home or self-care (01) ==
LOC: LAB 13:05
PROVIDERS: Family Provider Family Medicine; PCP Family Medicine; Referring Provider Internal Medicine Cardiovascular Disease; Visit Provider Internal Medicine Cardiovascular Disease
DX: Z79.01 Long term (current) use of anticoagulants (principal); Z95.2 Presence of prosthetic heart valve
CPT/HCPCS: 36415; 80061; 80076; 85610

== ENCOUNTER 2021-11-16 13:23 | Outpatient (RCR) | payer OTHER, SELFPAY ==
[2021-10-23 03:29] VITALS: BMI 37.1
[2021-10-29 13:43] LABS: International Normalized Ratio 2.3; Prothrombin Time (Protime)PT. 24.3 SECONDS (11.7-14.9)
[2021-11-09 15:35] LABS: Prothrombin Time (Protime)PT. 38.4 SECONDS (11.7-14.9)
[2021-11-16 14:44] LABS: International Normalized Ratio 3.3; Prothrombin Time (Protime)PT. 32.9 SECONDS (11.7-14.9)
== END 2021-11-16 18:00 | disposition home or self-care (01) ==
LOC: LAB 13:23
PROVIDERS: Family Provider Family Medicine; PCP Family Medicine; Referring Provider Internal Medicine Cardiovascular Disease; Visit Provider Internal Medicine Cardiovascular Disease
DX: Z95.2 Presence of prosthetic heart valve (principal); Z79.01 Long term (current) use of anticoagulants
CPT/HCPCS: 36415; 85610

== ENCOUNTER 2021-12-17 05:56 | Outpatient (RCR) | payer OTHER, SELFPAY ==
[2021-11-22 03:54] VITALS: BMI 37.1
[2021-12-07 17:26] LABS: International Normalized Ratio 1.6; Prothrombin Time (Protime)PT. 18.6 SECONDS (11.7-14.9)
[2021-12-17 08:45] LABS: International Normalized Ratio 2.1; Prothrombin Time (Protime)PT. 22.9 SECONDS (11.7-14.9)
== END 2021-12-17 18:00 | disposition home or self-care (01) ==
LOC: LAB 05:56
PROVIDERS: Family Provider Family Medicine; PCP Family Medicine; Referring Provider Internal Medicine Cardiovascular Disease; Visit Provider Internal Medicine Cardiovascular Disease
DX: Z95.2 Presence of prosthetic heart valve (principal); Z79.01 Long term (current) use of anticoagulants
CPT/HCPCS: 36415; 85610

== ENCOUNTER 2021-12-28 15:11 | Outpatient (RCR) | payer OTHER, SELFPAY ==
[2021-12-22 21:11] VITALS: BMI 37.1
[2021-12-28 16:35] LABS: International Normalized Ratio 2.5; Prothrombin Time (Protime)PT. 26.2 SECONDS (11.7-14.9)
== END 2021-12-28 23:59 | disposition home or self-care (01) ==
LOC: LAB 15:11
PROVIDERS: Family Provider Family Medicine; PCP Family Medicine; Referring Provider Internal Medicine Cardiovascular Disease; Visit Provider Internal Medicine Cardiovascular Disease
DX: Z95.2 Presence of prosthetic heart valve (principal); Z79.01 Long term (current) use of anticoagulants
CPT/HCPCS: 36415; 85610

== ENCOUNTER 2022-02-10 15:08 | Outpatient (RCR) | payer OTHER, SELFPAY ==
[2022-01-22 07:27] VITALS: BMI 37.1
[2022-02-10 17:32] LABS: International Normalized Ratio 3.6; Prothrombin Time (Protime)PT. 35.3 SECONDS (11.7-14.9)
== END 2022-02-21 02:53 | disposition home or self-care (01) ==
LOC: LAB 15:08
PROVIDERS: Family Provider Family Medicine; PCP Family Medicine; Referring Provider Internal Medicine Cardiovascular Disease; Visit Provider Internal Medicine Cardiovascular Disease
DX: Z95.2 Presence of prosthetic heart valve (principal); Z79.01 Long term (current) use of anticoagulants
CPT/HCPCS: 36415; 85610

== ENCOUNTER 2022-03-04 12:15 | Outpatient (RCR) | payer OTHER, SELFPAY ==
[2022-02-21 02:54] VITALS: BMI 37.1
[2022-03-04 13:10] LABS: International Normalized Ratio 2.4
== END 2022-03-04 18:00 | disposition home or self-care (01) ==
LOC: LAB 12:15
PROVIDERS: Family Provider Family Medicine; PCP Family Medicine; Referring Provider Internal Medicine Cardiovascular Disease; Visit Provider Internal Medicine Cardiovascular Disease
DX: Z95.2 Presence of prosthetic heart valve (principal); Z79.01 Long term (current) use of anticoagulants
CPT/HCPCS: 36415; 85610

== ENCOUNTER 2022-03-30 15:34 | Outpatient (RCR) | payer OTHER, SELFPAY ==
[2022-03-25 00:13] VITALS: BMI 37.1
[2022-03-30 17:42] LABS: Prothrombin Time (Protime)PT. 30.6 SECONDS (11.7-14.9)
== END 2022-03-30 18:00 | disposition home or self-care (01) ==
LOC: LAB 15:34
PROVIDERS: Family Provider Family Medicine; PCP Family Medicine; Referring Provider Internal Medicine Cardiovascular Disease; Visit Provider Internal Medicine Cardiovascular Disease
DX: Z95.2 Presence of prosthetic heart valve (principal); Z79.01 Long term (current) use of anticoagulants
CPT/HCPCS: 36415; 85610

== ENCOUNTER 2022-05-19 13:35 | Outpatient (RCR) | payer OTHER, SELFPAY ==
[2022-04-23 23:04] VITALS: BMI 37.1
[2022-04-29 16:26] LABS: International Normalized Ratio 2.8; Prothrombin Time (Protime)PT. 28.9 SECONDS (11.7-14.9)
[2022-05-19 15:01] LABS: International Normalized Ratio 3.7
== END 2022-05-19 18:00 | disposition home or self-care (01) ==
LOC: LAB 13:35
PROVIDERS: Family Provider Family Medicine; PCP Family Medicine; Referring Provider Internal Medicine Cardiovascular Disease; Visit Provider Internal Medicine Cardiovascular Disease
DX: Z95.2 Presence of prosthetic heart valve (principal); Z79.01 Long term (current) use of anticoagulants
CPT/HCPCS: 36415; 85610

== ENCOUNTER 2022-07-20 13:44 | Outpatient (RCR) | payer OTHER, SELFPAY ==
[2022-05-25 10:38] VITALS: BMI 37.1
[2022-06-29 15:16] LABS: International Normalized Ratio 4.6; Prothrombin Time (Protime)PT. 43.6 SECONDS (11.7-14.9)
[2022-07-20 15:15] LABS: International Normalized Ratio 3.2; Prothrombin Time (Protime)PT. 32.4 SECONDS (11.7-14.9)
[2022-08-24 17:24] LABS: International Normalized Ratio 2.5; Prothrombin Time (Protime)PT. 26.7 SECONDS (11.7-14.9)
== END 2022-07-20 18:00 | disposition home or self-care (01) ==
LOC: LAB 13:44
PROVIDERS: Family Provider Family Medicine; PCP Family Medicine; Referring Provider Internal Medicine Cardiovascular Disease; Visit Provider Internal Medicine Cardiovascular Disease
DX: Z95.2 Presence of prosthetic heart valve (principal); Z79.01 Long term (current) use of anticoagulants
CPT/HCPCS: 36415; 85610

== ENCOUNTER 2022-08-24 15:28 | Outpatient (RCR) | payer OTHER, SELFPAY ==
[2022-07-25 04:32] VITALS: BMI 37.1
== END 2022-08-24 18:00 | disposition home or self-care (01) ==
LOC: LAB 15:28
PROVIDERS: Family Provider Family Medicine; PCP Family Medicine; Referring Provider Internal Medicine Cardiovascular Disease; Visit Provider Internal Medicine Cardiovascular Disease
DX: Z00.00 Encounter for general adult medical examination without abnormal findings

== ENCOUNTER 2022-09-28 14:15 | Outpatient (RCR) | payer OTHER, SELFPAY ==
[2022-08-25 08:41] VITALS: BMI 37.1
[2022-09-28 15:18] LABS: International Normalized Ratio 3.5; Prothrombin Time (Protime)PT. 34.5 SECONDS (11.7-14.9)
== END 2022-10-22 23:19 | disposition home or self-care (01) ==
LOC: LAB 14:15
PROVIDERS: Family Provider Family Medicine; PCP Family Medicine; Referring Provider Internal Medicine Cardiovascular Disease; Visit Provider Internal Medicine Cardiovascular Disease
DX: Z95.2 Presence of prosthetic heart valve (principal); Z79.01 Long term (current) use of anticoagulants
CPT/HCPCS: 36415; 85610

== ENCOUNTER 2022-11-11 16:19 | Outpatient (RCR) | payer OTHER, SELFPAY ==
[2022-10-22 23:19] VITALS: BMI 37.1
[2022-11-11 17:40] LABS: International Normalized Ratio 3.1; Prothrombin Time (Protime)PT. 31.9 SECONDS (11.7-14.9)
== END 2022-11-21 02:10 | disposition home or self-care (01) ==
LOC: LAB 16:19
PROVIDERS: Family Provider Family Medicine; PCP Family Medicine; Referring Provider Internal Medicine Cardiovascular Disease; Visit Provider Internal Medicine Cardiovascular Disease
DX: Z95.2 Presence of prosthetic heart valve (principal); Z79.01 Long term (current) use of anticoagulants
CPT/HCPCS: 36415; 85610

== ENCOUNTER → 2022-11-25 | Outpatient (CLI) | payer OTHER, SELFPAY ==
--- NOTE | 2022-11-25 17:22 | STRESSREP ---
Stress Test Report Exercise myocardial perfusion stress test. 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 The patient exercised according to the regular Charles protocol for a total duration of 9 minutes attaining a maximum heart rate of 139 bpm which was 85% of maximum predicted heart rate; the maximum workload was 10.1 metabolic equivalents. At rest there were no ST or T wave changes noted to suggest ischemia and at peak exercise upsloping ST changes only were noted which did not meet the criteria for ischemia. No clinical angina was noted the test was terminated due to the target heart rate being achieved/fatigue. The peak blood pressure was 142/72 mmHg. Rate-pressure product was 19,400. Myocardial perfusion protocol. 14.8 mCi of technetium 99m sestamibi was injected at rest. The patient exercised according to regular Charles protocol for total duration of 9 minutes and at peak exercise 44.8 mCi of technetium 99m sestamibi was injected stress images were obtained stress and rest images were reconstructed in comparing the short axis vertical long and horizontal long axis. Gated images were also obtained. Perfusion SPECT analysis: Review of the stress images demonstrate normal uptake of tracer noted in all areas of the myocardium. The resting images similarly demonstrate normal uptake of tracer noted in all areas of the myocardium. No areas of reversibility are noted to suggest ischemia no previous infarct was noted. Gated SPECT analysis: The gated ejection fraction is 61%. Conclusion: Normal exercise myocardial perfusion stress test at a high workload Preserved ejection fraction.
== END | disposition home or self-care (01) ==
PROVIDERS: PCP Family Medicine; Referring Provider Physician Assistant Medical; Visit Provider Physician Assistant Medical
DX: I35.0 Nonrheumatic aortic (valve) stenosis (principal); I77.810 Thoracic aortic ectasia; I35.1 Nonrheumatic aortic (valve) insufficiency; Z95.2 Presence of prosthetic heart valve; Z95.828 Presence of other vascular implants and grafts; I10 Essential (primary) hypertension; E78.5 Hyperlipidemia, unspecified
CPT/HCPCS: 78452; 93017; A9500; A4216

== ENCOUNTER 2023-01-31 14:21 | Outpatient (RCR) | payer OTHER, SELFPAY ==
[2022-11-21 02:10] VITALS: BMI 37.1
[2023-01-31 15:17] LABS: International Normalized Ratio 3.1; Prothrombin Time (Protime)PT. 32.2 SECONDS (11.7-14.9)
== END 2023-02-21 18:00 | disposition home or self-care (01) ==
LOC: LAB 14:21
PROVIDERS: Family Provider Family Medicine; PCP Family Medicine; Referring Provider Internal Medicine Cardiovascular Disease; Visit Provider Internal Medicine Cardiovascular Disease
DX: Z95.2 Presence of prosthetic heart valve (principal); Z79.01 Long term (current) use of anticoagulants
CPT/HCPCS: 36415; 85610

== ENCOUNTER 2023-03-14 12:45 | Outpatient (RCR) | payer OTHER, SELFPAY ==
[2023-02-22 00:58] VITALS: BMI 37.1
[2023-03-14 13:29] LABS: International Normalized Ratio 2.7
== END 2023-03-14 18:00 | disposition home or self-care (01) ==
LOC: LAB 12:45
PROVIDERS: Family Provider Family Medicine; PCP Family Medicine; Referring Provider Internal Medicine Cardiovascular Disease; Visit Provider Internal Medicine Cardiovascular Disease
DX: Z95.2 Presence of prosthetic heart valve (principal); Z79.01 Long term (current) use of anticoagulants
CPT/HCPCS: 36415; 85610

== ENCOUNTER 2023-04-19 16:02 | Outpatient (RCR) | payer OTHER, SELFPAY ==
[2023-03-24 23:19] VITALS: BMI 37.1
[2023-04-19 17:25] LABS: International Normalized Ratio 3.7; Prothrombin Time (Protime)PT. 37.2 SECONDS (11.7-14.9)
== END 2023-04-19 18:00 | disposition home or self-care (01) ==
LOC: LAB 16:02
PROVIDERS: Family Provider Family Medicine; PCP Family Medicine; Referring Provider Internal Medicine Cardiovascular Disease; Visit Provider Internal Medicine Cardiovascular Disease
DX: Z95.2 Presence of prosthetic heart valve (principal); Z79.01 Long term (current) use of anticoagulants
CPT/HCPCS: 36415; 85610

== ENCOUNTER 2023-05-24 06:01 | Outpatient (RCR) | payer OTHER, SELFPAY ==
[2023-04-24 04:11] VITALS: BMI 37.1
[2023-04-27 17:04] LABS: International Normalized Ratio 3.5; Prothrombin Time (Protime)PT. 35.9 SECONDS (11.7-14.9)
[2023-05-16 16:39] LABS: International Normalized Ratio 3.2; Prothrombin Time (Protime)PT. 33.2 SECONDS (11.7-14.9)
[2023-05-24 07:00] LABS: International Normalized Ratio 3.5; Prothrombin Time (Protime)PT. 35.7 SECONDS (11.7-14.9)
[2023-05-24 07:33] LABS: AST(SGOT) 20 U/L (15-37); Alanine Aminotransfer ALT/SGPT 44 U/L (16-61); Albumin, Serum 3.4 g/dL (3.2-5.0); Alkaline Phosphatase 56 U/L (45-117); Bilirubin, Direct 0.18 mg/dL (0.00-0.30); Cholesterol 94 mg/dL (200); Globulin 3.8 g/dL (2.2-4.2); High Density Lipoprotein 21 mg/dL; Protein, Total 7.2 g/dL (6.4-8.2); Triglycerides 227 mg/dL; Very Low Density Lipoprotein 45 mg/dL (5-40)
== END 2023-05-24 18:00 | disposition home or self-care (01) ==
LOC: LAB 06:01
PROVIDERS: Physician Assistant Medical; Family Provider Family Medicine; PCP Family Medicine; Referring Provider Internal Medicine Cardiovascular Disease; Visit Provider Internal Medicine Cardiovascular Disease
DX: Z95.2 Presence of prosthetic heart valve (principal); Z79.01 Long term (current) use of anticoagulants; E78.5 Hyperlipidemia, unspecified
CPT/HCPCS: 36415; 80061; 80076; 85610

== ENCOUNTER 2023-07-04 15:15 | Outpatient (RCR) | payer OTHER, SELFPAY ==
[2023-05-24 22:33] VITALS: BMI 37.1
[2023-07-04 16:25] LABS: International Normalized Ratio 3.5; Prothrombin Time (Protime)PT. 35.9 SECONDS (11.7-14.9)
== END 2023-07-24 18:00 | disposition home or self-care (01) ==
LOC: LAB 15:15
PROVIDERS: Family Provider Family Medicine; PCP Family Medicine; Referring Provider Internal Medicine Cardiovascular Disease; Visit Provider Internal Medicine Cardiovascular Disease
DX: Z95.2 Presence of prosthetic heart valve (principal); Z79.01 Long term (current) use of anticoagulants
CPT/HCPCS: 36415; 85610

== ENCOUNTER 2023-08-17 15:20 | Outpatient (RCR) | payer OTHER, SELFPAY ==
[2023-07-24 23:10] VITALS: BMI 37.1
[2023-08-17 17:00] LABS: International Normalized Ratio 3.2; Prothrombin Time (Protime)PT. 32.8 SECONDS (11.7-14.9)
== END 2023-08-17 18:00 | disposition home or self-care (01) ==
LOC: LAB 15:20
PROVIDERS: Family Provider Family Medicine; PCP Family Medicine; Referring Provider Internal Medicine Cardiovascular Disease; Visit Provider Internal Medicine Cardiovascular Disease
DX: Z95.2 Presence of prosthetic heart valve (principal); Z79.01 Long term (current) use of anticoagulants
CPT/HCPCS: 36415; 85610

== ENCOUNTER 2023-09-01 11:43 | Emergency (ER) | payer OTHER, SELFPAY ==
[2023-09-01 11:44] VITALS: BP 127/81; PULSE 78; RESP 14; TEMP 36.8; O2SAT 98; BMI 38.0
--- NOTE | 2023-09-01 12:55 | RAD_ITS ---
STUDY: X-RAY CHEST REASON FOR EXAM: Male, 58 years old. Cough, CP TECHNIQUE: PA and lateral views of the chest. COMPARISON: Comparison is made with prior study dated August 22, 2017. FINDINGS: Mild increased markings in the lingular segment of the left upper lobe suggestive of atelectasis. There is no demonstrated pleural abnormality. Sternal cerclage wires are present from a prior sternotomy. Presents of prior mitral valve replacement. Normal mediastinum and paula. Normal visualized pulmonary arteries. There is atherosclerotic tortuosity of the aortic arch and descending thoracic aorta. There are mild degenerative changes of the visualized thoracic spine. Normal visualized ribs, clavicles, and shoulders. There is no demonstrated abnormality of the visualized soft tissue structures of the upper abdomen. RAD/Chest PA and Lateral IMPRESSION: Increased markings in the lingular segment of the left upper lobe suggests a mild degree of basilar atelectasis. Status post mitral valve replacement. Electronically Signed: Kahlil Bailey MD at 14:12 EST ,
--- NOTE | 2023-09-01 12:57 | EX.ED.VIS.UR ---
HPI HPI - URI History of Present Illness Chief Complaint: Cough Informant: patient Narrative Narrative: Nasal congestion, subjective fever without chills, and nonproductive cough with some upper chest discomfort hurts more with coughing and was better with Vicks VapoRub, and feeling lightheaded whenever he would have coughing fits and coughed really hard. No sputum or blood. Denies having dyspnea when he is not coughing. No orthopnea or swelling in his legs but lying down does make him cough more. He was seen in urgent care and states he had some swabs including COVID that was negative but he does not know everything that he was swabbed for, and they sent him here because he has chest pain. Patient has a history of a bileaflet aortic valve and had dilatation of the aortic root, he had a mechanical aortic valve replacement and replacement of the ascending aorta, he is now on warfarin and has had no bleeding from anywhere recently. [facility] ED Constitutional Constitutional ED: Reports fever(s) and subjective; Denies chills ENT ENT ED: Reports nasal congestion, rhinorrhea and sore throat Cardiovascular Cardiovascular: Reports as per HPI and chest pain; Denies orthopnea, palpitations or syncope Respiratory/Chest Respiratory/Chest: Denies dyspnea or orthopnea Gastrointestinal Gastrointestinal: Denies abdominal pain, diarrhea, nausea or vomiting Genitourinary Genitourinary ED: Denies dysuria or hematuria Musculoskeletal Musculoskeletal: Denies myalgias or neck pain Integumentary Denies abscess or rash Neurologic Neurologic: Denies headache(s), paresthesias or weakness Psychiatric Psychiatric: Denies depression or suicidal thoughts Endocrine Endocrinology: Denies polydipsia or polyuria Hematologic/Lymphatic Hematologic/Lymphatic: Reports easy bleeding and easy bruising [facility] Medical History (Updated 09/01/23 @ 14:[address] Fabian Foster MD) Abdominal wall mass of left upper quadrant Dilated aortic root Essential (primary) hypertension Hyperlipidemia Nonrheumatic aortic (valve) stenosis Nonrheumatic aortic valve insufficiency Obesity (BMI 30.0-34.9) Home Medications losartan 100 mg tablet See Rx Instructions .Route .COMPLEX #90 tabs 09/27/22 [Rx Last Taken Unknown] atorvastatin 10 mg tablet 10 mg PO QPM #90 tabs 09/28/22 [Rx Last Taken Unknown] warfarin 5 mg tablet 5 mg PO QDAY #180 tabs 12/14/22 [Rx Last Taken Unknown] amlodipine 10 mg tablet 10 mg PO QHS #90 tabs 12/29/22 [Rx Last Taken Unknown] metoprolol tartrate 25 mg tablet 25 mg PO BID #180 tabs 12/29/22 [Rx Last Taken Unknown] hydrochlorothiazide 25 mg tablet 25 mg PO DAILY #90 tabs 03/21/23 [Rx Last Taken Unknown] warfarin 1 mg tablet 1 mg PO .COMPLEX #180 tabs 05/11/23 [Rx Last Taken Unknown] Allergy/AdvReac Type Severity Reaction Status Date / Time amoxicillin Allergy hives Verified 09/01/23 11:44 lisinopril AdvReac cough Verified 09/01/23 11:44 Family History Mother CAD (coronary artery disease) coronary stents in her 70's Father CAD (coronary artery disease) Father from [place] age 57 Surgical History H/O umbilical hernia repair History of aortic aneurysm repair History of ascending aortic replacement (10/28/17) History of colonoscopy (2013) Status post mechanical aortic valve replacement (10/28/17) Ventral incisional hernia (02/2019) Social History Smoking Status: Never smoker alcohol intake: current alcohol intake frequency: a few times a month Alcohol type: wine substance use type: does not use caffeine: Yes Type: coffee Number of servings: 1 what type of physical activity do you participate in: walking frequency: 5-6 times per week duration: 15-30 minutes/day seatbelt use: always do you feel safe at home: Yes EXAM Physical Exam Const Vital Signs: 09/01/23 11:44 09/01/23 13:13 09/01/23 13:13 Temperature 98.2 F Temperature Source Temporal Pulse Rate 78 84 Respiratory Rate 14 18 Respiratory Effort Respiratory Depth Respiratory Pattern Normal Blood Pressure 127/81 H Blood Pressure Mean 96 Pulse Ox 98 96 Oxygen Delivery Method Room Air Room Air 09/01/23 13:33 Temperature Temperature Source Pulse Rate Respiratory Rate Respiratory Effort Normal Non-Labored Respiratory Depth Normal Respiratory Pattern Normal Blood Pressure Blood Pressure Mean Pulse Ox Oxygen Delivery Method Room Air Positive well nourished and well developed General Appearance ED: well developed and NAD HEENT Reports moist mucous membranes normocephalic and atraumatic Throat: Negative for posterior oropharynx abnormal Eyes PERRL and EOMs intact bilaterally Neck no lymphadenopathy, supple and no meningeal signs Resp normal respiratory effort and clear to auscultation bilaterally Cardio Cardio Narrative: Audible systolic click Rate: regular rate Rhythm: regular rhythm GI non-tender and non-distended Extremity normal to inspection and full ROM Extremity Narrative: No edema or calf tenderness bilaterally Neuro oriented x3, CN's II-XII intact bilaterally and no sensory deficits noted Sensorium / Orientation: alert Motor Exam: strength 5/5 throughout Psych mental status grossly normal Skin Lesions: no lesions Rashes: no rashes MDM MDM MDM Narrative Medical decision making narrative: All consistent with acute viral bronchitis. EKG obtained, shows no acute injury my interpretation, also obtain 2 view chest x-ray, no pneumonia on my interpretation radiology in agreement. In the meantime he was given a duo nebulizer treatment to see if it helped with the symptoms. He said it did. I obtained old records from today from the urgent care he went to, which showed that they did COVID and influenza swabs and they were both negative. Therefore do not think we need to do another swab here. 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 Additionally we checked his INR is 2.6, therapeutic, therefore not concerned about the potential for acute pulmonary embolus here especially with normal vital signs and pulse oximetry. History & Record Review Additional record(s) reviewed:: Prior labs Lab Data Attestation: I reviewed the patient's lab results. Labs: Laboratory Results - last 24 hr 09/01/23 13:20 PT 28.4 H INR 2.6 Radiography Diagnostic Testing: Clinical Impression(s) from Imaging Studies Chest X-Ray 09/01/23 12:55 IMPRESSION: Increased markings in the lingular segment of the left upper lobe suggests a mild degree of basilar atelectasis. Status post mitral valve replacement. Electronically Signed: Kahlil Bailey MD at 14:12 EST , Rhythm Strip Rhythm Strip: Sinus Rhythm Rate: 80 Ectopy: None EKG Initial EKG: Attestation: I personally reviewed and interpreted this EKG as follows: Interpretation: Sinus Rhythm and No Acute Injury Pattern Comments: Normal EKG Discharge Plan Triage Chief Complaint: Cough ED Provider: Fabian Foster Dx/Rx/DC Orders Clinical Impression: Warfarin-induced coagulopathy, Acute viral bronchitis Instructions: Acute Bronchitis Prescriptions: No Action atorvastatin 10 mg tablet 10 mg PO QPM Qty: 90 3RF losartan 100 mg tablet See Rx Instructions .ROUTE .COMPLEX Qty: 90 3RF Dose Instruction: take 1 tablet by mouth once daily Rx Instructions: take 1 tablet by mouth once daily warfarin 5 mg tablet 5 mg PO QDAY Qty: 180 3RF Protocol: Dose Management Condition: Tuesday Dose/Route: 7 mg Instruction: 2 x 1 mg tablets, 1 x 5 mg tablet Condition: Tuesday Dose/Route: 6 mg Instruction: 1 x 1 mg tablet, 1 x 5 mg tablet Condition: Tuesday Dose/Route: 6 mg Instruction: 1 x 1 mg tablet, 1 x 5 mg tablet Condition: Tuesday Dose/Route: 6 mg Instruction: 1 x 1 mg tablet, 1 x 5 mg tablet Condition: Dose/Route: 6 mg Instruction: 1 x 1 mg tablet, 1 x 5 mg tablet Condition: Tuesday Dose/Route: 6 mg Instruction: 1 x 1 mg tablet, 1 x 5 mg tablet Condition: Tuesday Dose/Route: 6 mg Instruction: 1 x 1 mg tablet, 1 x 5 mg tablet Protocol Text: Adjustment Start Date: 08/18/23 INR Value: 3.2 INR Date: 08/17/23 Recheck Date: 09/17/23 amlodipine 10 mg tablet 10 mg PO QHS Qty: 90 3RF metoprolol tartrate 25 mg tablet 25 mg PO BID Qty: 180 3RF hydrochlorothiazide 25 mg tablet 25 mg PO DAILY Qty: 90 3RF warfarin 1 mg tablet 1 mg PO .COMPLEX Qty: 180 3RF Protocol: Dose Management Condition: Tuesday Dose/Route: 7 mg Instruction: 2 x 1 mg tablets, 1 x 5 mg tablet Condition: Tuesday Dose/Route: 6 mg Instruction: 1 x 1 mg tablet, 1 x 5 mg tablet Condition: Tuesday Dose/Route: 6 mg Instruction: 1 x 1 mg tablet, 1 x 5 mg tablet Condition: Tuesday Dose/Route: 6 mg Instruction: 1 x 1 mg tablet, 1 x 5 mg tablet Condition: Dose/Route: 6 mg Instruction: 1 x 1 mg tablet, 1 x 5 mg tablet Condition: Tuesday Dose/Route: 6 mg Instruction: 1 x 1 mg tablet, 1 x 5 mg tablet Condition: Tuesday Dose/Route: 6 mg Instruction: 1 x 1 mg tablet, 1 x 5 mg tablet Protocol Text: Adjustment Start Date: 08/18/23 INR Value: 3.2 INR Date: 08/17/23 Recheck Date: 09/17/23 Rx Instructions: 1 mg PO take 2 tablets by mouth with a 5mg tablet = 7mg daily Stand Alone Forms: ED Work / School Excuse Primary Care Provider: Camilo Villavicencio Referrals: Camilo Villavicencio DO [Primary Care Provider] - As Needed Activity Restrictions/Additional Instructions: Your INR was 2.6 today. If that is low, call your doctor for instructions on dosing adjustments.
[2023-09-01] MEDS: Ipratropium/Albuterol Sulfate 3 ML AMPUL.NEB INHALATION (13:05)
[2023-09-01 13:13] VITALS: PULSE 84; RESP 18; O2SAT 96
[2023-09-01 13:54] LABS: International Normalized Ratio 2.6; Prothrombin Time (Protime)PT. 28.4 SECONDS (11.7-14.9)
== END 2023-09-01 14:40 | disposition home or self-care (01) ==
PROVIDERS: Emergency Provider Emergency Medicine; PCP Family Medicine; Visit Provider Emergency Medicine
DX: J20.8 Acute bronchitis due to other specified organisms (principal); R79.1 Abnormal coagulation profile; T45.515A Adverse effect of anticoagulants, initial encounter; Z95.2 Presence of prosthetic heart valve; I10 Essential (primary) hypertension; E78.5 Hyperlipidemia, unspecified; E66.9 Obesity, unspecified; Z79.01 Long term (current) use of anticoagulants; Z79.899 Other long term (current) drug therapy
CPT/HCPCS: 36415; 71046; 85610; 93005; 99282

== ENCOUNTER 2023-10-14 15:52 | Outpatient (RCR) | payer OTHER, SELFPAY ==
[2023-08-24 23:20] VITALS: BMI 37.1
[2023-10-03 15:20] LABS: International Normalized Ratio 3.8
[2023-10-14 17:02] LABS: International Normalized Ratio 3.5
== END 2023-10-23 01:07 | disposition home or self-care (01) ==
LOC: LAB 15:52
PROVIDERS: Family Provider Family Medicine; PCP Family Medicine; Referring Provider Internal Medicine Cardiovascular Disease; Visit Provider Internal Medicine Cardiovascular Disease
DX: Z95.2 Presence of prosthetic heart valve (principal); Z79.01 Long term (current) use of anticoagulants
CPT/HCPCS: 36415; 85610

== ENCOUNTER → 2023-11-22 | Outpatient (CLI) | payer OTHER, SELFPAY ==
--- NOTE | 2023-11-22 14:09 | ECHOCS_ITS ---
Reason For Study: AORTIC VALVE REPLACEMENT Procedure This was a 2D Doppler, Color Flow transthoracic echocardiogram. The study was technically difficult. Contrast injection was performed. Exam performed in department. Left Ventricle Normal LV size. Moderate concentric left ventricular hypertrophy. Left ventricular systolic function is normal. The left ventricular ejection fraction is 55 %. No regional wall motion abnormalities noted. Right Ventricle Normal RV size. Normal systolic function. Atria Normal left atrium. Normal right atrium. Mitral Valve Normal mitral valve. Tricuspid Valve Normal tricuspid valve. Aortic Valve Peak aortic valve gradient 13 mmHg. Mean aortic valve gradient 7 mmHg. Stable appearing mechanical aortic valve apparatus. Pulmonic Valve The pulmonic valve is not well visualized. Great Vessels Normal aortic root. The pulmonary artery is normal size. Normal inferior vena cava. Pericardium/Pleural No pericardial effusion. Medication 22 gauge I.V. with prn adaptor inserted into left arm. Diluted definity 2ml given slow IV push to enhance endocardial definition. MMode/2D Measurements & Calculations LVIDd: 4.7 cm IVSd: 1.4 cm LVOT diam: 2.2 cm LVIDs: 2.9 cm LVPWd: 1.3 cm RVDd: 3.9 cm FS: 38.7 % LVOT area: 3.7 cm2 Ao root diam: 4.2 cm LAV(MOD-bp): 44.0 ml LVAd ap4: 28.2 cm2 LAV(MOD-bp) Indexed: 20.7 ml/m2 LVLd ap4: 7.8 cm LAV(MOD-sp2): 48.1 ml EDV(MOD-sp4): 82.5 ml LAV(MOD-sp4): 36.6 ml EDV(sp4-el): 85.8 ml LVAs ap4: 17.8 cm2 LVLs ap4: 7.0 cm ESV(MOD-sp4): 38.8 ml ESV(sp4-el): 38.5 ml EF(MOD-sp4): 52.9 % EF(sp4-el): 55.1 % LVAd ap2: 26.2 cm2 SV(MOD-sp4): 43.7 ml SV(MOD-sp2): 43.5 ml LVLd ap2: 7.8 cm EDV(MOD-sp2): 74.5 ml EDV(sp2-el): 74.5 ml LVAs ap2: 15.4 cm2 LVLs ap2: 6.7 cm ESV(MOD-sp2): 31.0 ml ESV(sp2-el): 30.2 ml EF(MOD-sp2): 58.4 % SV(sp4-el): 47.3 ml LA dimension(2D): 4.8 cm LA A4 area: 14.4 cm2 RA A4 area: 15.5 cm2 TAPSE: 1.3 cm Time Measurements MV dec time: 0.22 sec Doppler Measurements & Calculations MV E max santos: 77.9 cm/sec Lat Peak E' Santos: 9.1 cm/sec Med Peak E' Santos: 6.9 cm/sec MV A max santos: 85.3 cm/sec E/E' lat: 8.6 E/E' med: 11.2 MV E/A: 0.91 Ao V2 max: 179.5 cm/sec LV V1 max: 88.6 cm/sec MV dec slope: 348.6 cm/sec2 Ao max P.9 mmHg LV V1 max P.1 mmHg Ao V2 mean: 130.4 cm/sec LV V1 mean P.1 mmHg Ao mean P.4 mmHg LV V1 mean: 71.3 cm/sec Ao V2 VTI: 31.4 cm LV V1 VTI: 20.6 cm AV (velocity ratio): 0.65 MARTINEZ(I,D): 2.4 cm2 MARTINEZ(V,D): 1.8 cm2 SV(LVOT): 76.7 ml PA V2 max: 93.0 cm/sec PA max PG (full): 0.65 mmHg ECHO/Echo Complete W/ Contrast Interpretation Summary Normal LV size. Moderate concentric left ventricular hypertrophy. Left ventricular systolic function is normal. The left ventricular ejection fraction is 55 %. Stable appearing mechanical aortic valve apparatus. Mean aortic valve gradient 7 mmHg. Contrast injection was performed. Ordering Physician: Clifford Mendoza Referring Physician: Clifford Mendoza MD Performed By: Roxanne Lin RDCS and Student
== END | disposition home or self-care (01) ==
PROVIDERS: PCP Family Medicine; Referring Provider Internal Medicine Cardiovascular Disease; Visit Provider Internal Medicine Cardiovascular Disease
DX: Z95.2 Presence of prosthetic heart valve (principal)
CPT/HCPCS: 93306; Q9957; A4216; C8929

== ENCOUNTER 2023-12-14 16:11 | Outpatient (RCR) | payer OTHER, SELFPAY ==
[2023-10-23 01:07] VITALS: BMI 37.1
[2023-12-14 16:41] LABS: International Normalized Ratio 2.3; Prothrombin Time (Protime)PT. 25.2 SECONDS (11.7-14.9)
== END 2023-12-20 18:00 | disposition home or self-care (01) ==
LOC: LAB 16:11
PROVIDERS: Family Provider Family Medicine; PCP Family Medicine; Referring Provider Internal Medicine Cardiovascular Disease; Visit Provider Internal Medicine Cardiovascular Disease
DX: Z95.2 Presence of prosthetic heart valve (principal); Z79.01 Long term (current) use of anticoagulants
CPT/HCPCS: 36415; 85610

== ENCOUNTER 2023-12-26 15:40 | Outpatient (RCR) | payer OTHER, SELFPAY ==
[2023-12-26 09:34] VITALS: BMI 37.1
[2023-12-26 16:59] LABS: International Normalized Ratio 2.8; Prothrombin Time (Protime)PT. 29.7 SECONDS (11.7-14.9)
== END 2023-12-26 18:00 | disposition home or self-care (01) ==
LOC: LAB 15:40
PROVIDERS: Physician Assistant Medical; Family Provider Family Medicine; PCP Family Medicine; Referring Provider Internal Medicine Cardiovascular Disease; Visit Provider Internal Medicine Cardiovascular Disease
DX: Z95.2 Presence of prosthetic heart valve (principal); Z79.01 Long term (current) use of anticoagulants; E78.00 Pure hypercholesterolemia, unspecified
CPT/HCPCS: 36415; 85610

== ENCOUNTER → 2023-12-30 | Outpatient (CLI) | payer OTHER, SELFPAY ==
[2023-12-30 07:40] LABS: AST(SGOT) 22 U/L (15-37); Alanine Aminotransfer ALT/SGPT 34 U/L (16-61); Albumin, Serum 3.6 g/dL (3.2-5.0); Alkaline Phosphatase 57 U/L (45-117); Bilirubin, Direct 0.12 mg/dL (0.00-0.30); Cholesterol 86 mg/dL (200); Globulin 3.5 g/dL (2.2-4.2); High Density Lipoprotein 17 mg/dL; Protein, Total 7.1 g/dL (6.4-8.2); Triglycerides 394 mg/dL; Very Low Density Lipoprotein 79 mg/dL (5-40)
== END | disposition home or self-care (01) ==
LOC: LAB 06:10
PROVIDERS: PCP Family Medicine; Referring Provider Internal Medicine Cardiovascular Disease; Visit Provider Internal Medicine Cardiovascular Disease
DX: E78.5 Hyperlipidemia, unspecified (principal)
CPT/HCPCS: 36415; 80061; 80076

== ENCOUNTER 2024-02-09 16:30 | Outpatient (RCR) | payer OTHER, SELFPAY ==
[2024-01-23 03:33] VITALS: BMI 37.1
[2024-02-09 17:24] LABS: International Normalized Ratio 3.9; Prothrombin Time (Protime)PT. 37.9 SECONDS (11.7-14.9)
== END 2024-02-22 18:00 | disposition home or self-care (01) ==
LOC: LAB 16:30
PROVIDERS: Family Provider Family Medicine; PCP Family Medicine; Referring Provider Internal Medicine Cardiovascular Disease; Visit Provider Internal Medicine Cardiovascular Disease
DX: Z95.2 Presence of prosthetic heart valve (principal); Z79.01 Long term (current) use of anticoagulants
CPT/HCPCS: 36415; 85610

== ENCOUNTER 2024-03-09 15:33 | Outpatient (RCR) | payer OTHER, SELFPAY ==
[2024-02-22 22:18] VITALS: BMI 37.1
[2024-03-09 16:13] LABS: International Normalized Ratio 3.7; Prothrombin Time (Protime)PT. 36.3 SECONDS (11.7-14.9)
== END 2024-03-09 18:00 | disposition home or self-care (01) ==
LOC: LAB 15:33
PROVIDERS: Family Provider Family Medicine; PCP Family Medicine; Referring Provider Internal Medicine Cardiovascular Disease; Visit Provider Internal Medicine Cardiovascular Disease
DX: Z95.2 Presence of prosthetic heart valve (principal); Z79.01 Long term (current) use of anticoagulants
CPT/HCPCS: 36415; 85610

== ENCOUNTER 2024-05-01 16:33 | Outpatient (RCR) | payer OTHER, SELFPAY ==
[2024-03-25 04:40] VITALS: BMI 37.1
[2024-05-01 17:01] LABS: Prothrombin Time (Protime)PT. 30.6 SECONDS (11.7-14.9)
== END 2024-05-01 18:00 | disposition home or self-care (01) ==
LOC: LAB 16:33
PROVIDERS: Family Provider Family Medicine; PCP Family Medicine; Referring Provider Internal Medicine Cardiovascular Disease; Visit Provider Internal Medicine Cardiovascular Disease
DX: Z95.2 Presence of prosthetic heart valve (principal); Z79.01 Long term (current) use of anticoagulants; Z95.828 Presence of other vascular implants and grafts
CPT/HCPCS: 36415; 85610

== ENCOUNTER → 2024-05-05 | Outpatient (CLI) | payer OTHER, SELFPAY ==
[2024-05-05 11:14] LABS: AST(SGOT) 35 U/L (15-37); Alanine Aminotransfer ALT/SGPT 39 U/L (16-61); Albumin, Serum 3.4 g/dL (3.2-5.0); Alkaline Phosphatase 51 U/L (45-117); Bilirubin, Direct 0.17 mg/dL (0.00-0.30); Cholesterol 78 mg/dL (200); Globulin 3.7 g/dL (2.2-4.2); High Density Lipoprotein 26 mg/dL; Protein, Total 7.1 g/dL (6.4-8.2); Triglycerides 150 mg/dL; Very Low Density Lipoprotein 30 mg/dL (5-40)
== END | disposition home or self-care (01) ==
LOC: LAB 07:56
PROVIDERS: PCP Family Medicine; Referring Provider Nurse Practitioner Family; Visit Provider Nurse Practitioner Family
DX: E78.00 Pure hypercholesterolemia, unspecified (principal); Z95.2 Presence of prosthetic heart valve; Z95.828 Presence of other vascular implants and grafts; Z79.01 Long term (current) use of anticoagulants
CPT/HCPCS: 36415; 80061; 80076

== ENCOUNTER 2024-06-08 13:54 | Outpatient (RCR) | payer OTHER, SELFPAY ==
[2024-05-24 20:48] VITALS: BMI 37.1
[2024-05-29 15:24] LABS: International Normalized Ratio 3.7
[2024-06-08 14:48] LABS: International Normalized Ratio 2.9; Prothrombin Time (Protime)PT. 30.2 SECONDS (11.7-14.9)
== END 2024-06-23 18:00 | disposition home or self-care (01) ==
LOC: LAB 13:54
PROVIDERS: Family Provider Family Medicine; PCP Family Medicine; Referring Provider Internal Medicine Cardiovascular Disease; Visit Provider Internal Medicine Cardiovascular Disease
DX: Z95.2 Presence of prosthetic heart valve (principal); Z79.01 Long term (current) use of anticoagulants

== ENCOUNTER 2024-07-12 14:26 | Outpatient (RCR) | payer OTHER, SELFPAY ==
[2024-06-24 01:08] VITALS: BMI 37.1
[2024-07-12 15:37] LABS: International Normalized Ratio 2.6; Prothrombin Time (Protime)PT. 27.7 SECONDS (11.7-14.9)
== END 2024-07-12 18:00 | disposition home or self-care (01) ==
LOC: LAB 14:26
PROVIDERS: Family Provider Family Medicine; PCP Family Medicine; Referring Provider Internal Medicine Cardiovascular Disease; Visit Provider Internal Medicine Cardiovascular Disease
DX: Z95.2 Presence of prosthetic heart valve (principal); Z79.01 Long term (current) use of anticoagulants

== ENCOUNTER 2024-08-20 12:54 | Outpatient (RCR) | payer OTHER, SELFPAY ==
[2024-07-25 04:39] VITALS: BMI 37.1
[2024-08-07 15:56] LABS: International Normalized Ratio 1.8; Prothrombin Time (Protime)PT. 21.5 SECONDS (11.7-14.9)
[2024-08-20 14:12] LABS: International Normalized Ratio 2.1
== END 2024-08-20 18:00 | disposition home or self-care (01) ==
LOC: LAB 12:54
PROVIDERS: Family Provider Family Medicine; PCP Family Medicine; Referring Provider Internal Medicine Cardiovascular Disease; Visit Provider Internal Medicine Cardiovascular Disease
DX: Z95.2 Presence of prosthetic heart valve (principal); Z79.01 Long term (current) use of anticoagulants; Z95.828 Presence of other vascular implants and grafts
CPT/HCPCS: 36415; 85610

== ENCOUNTER 2024-09-05 14:14 | Outpatient (RCR) | payer OTHER, SELFPAY ==
[2024-08-25 02:59] VITALS: BMI 37.1
[2024-09-05 15:11] LABS: International Normalized Ratio 2.2; Prothrombin Time (Protime)PT. 24.5 SECONDS (11.7-14.9)
== END 2024-09-21 18:00 | disposition home or self-care (01) ==
LOC: LAB 14:14
PROVIDERS: Family Provider Family Medicine; PCP Family Medicine; Referring Provider Internal Medicine Cardiovascular Disease; Visit Provider Internal Medicine Cardiovascular Disease
DX: Z95.2 Presence of prosthetic heart valve (principal); Z79.01 Long term (current) use of anticoagulants
CPT/HCPCS: 36415; 85610

== ENCOUNTER 2024-10-09 14:21 | Outpatient (RCR) | payer OTHER, SELFPAY ==
[2024-09-22 07:19] VITALS: BMI 37.1
[2024-09-25 17:24] LABS: International Normalized Ratio 2.1; Prothrombin Time (Protime)PT. 23.9 SECONDS (11.7-14.9)
[2024-10-09 16:02] LABS: International Normalized Ratio 2.6; Prothrombin Time (Protime)PT. 28.3 SECONDS (11.7-14.9)
== END 2024-10-09 18:00 | disposition home or self-care (01) ==
LOC: LAB 14:21
PROVIDERS: Family Provider Family Medicine; PCP Family Medicine; Referring Provider Internal Medicine Cardiovascular Disease; Visit Provider Internal Medicine Cardiovascular Disease
DX: Z95.2 Presence of prosthetic heart valve (principal); Z79.01 Long term (current) use of anticoagulants; Z95.828 Presence of other vascular implants and grafts
CPT/HCPCS: 36415; 85610

== ENCOUNTER 2024-10-23 14:21 | Outpatient (RCR) | payer OTHER, SELFPAY ==
[2024-10-22 22:37] VITALS: BMI 37.1
[2024-10-23 15:24] LABS: International Normalized Ratio 2.4; Prothrombin Time (Protime)PT. 26.5 SECONDS (11.7-14.9)
== END 2024-11-21 18:00 | disposition home or self-care (01) ==
LOC: LAB 14:21
PROVIDERS: Family Provider Family Medicine; PCP Family Medicine; Referring Provider Internal Medicine Cardiovascular Disease; Visit Provider Internal Medicine Cardiovascular Disease
DX: Z95.2 Presence of prosthetic heart valve (principal); Z79.01 Long term (current) use of anticoagulants; Z95.828 Presence of other vascular implants and grafts
CPT/HCPCS: 36415; 85610

== ENCOUNTER 2024-12-14 16:16 | Outpatient (RCR) | payer OTHER, SELFPAY ==
[2024-11-21 21:54] VITALS: BMI 37.1
[2024-12-14 18:27] LABS: International Normalized Ratio 3.1; Prothrombin Time (Protime)PT. 32.4 SECONDS (11.7-14.9)
== END 2024-12-14 18:00 | disposition home or self-care (01) ==
LOC: LAB 16:16
PROVIDERS: Family Provider Family Medicine; PCP Family Medicine; Referring Provider Internal Medicine Cardiovascular Disease; Visit Provider Internal Medicine Cardiovascular Disease
DX: Z95.2 Presence of prosthetic heart valve (principal); Z79.01 Long term (current) use of anticoagulants
CPT/HCPCS: 36415; 85610

== ENCOUNTER 2025-01-03 14:59 | Outpatient (RCR) | payer OTHER, SELFPAY ==
[2024-12-23 19:02] VITALS: BMI 37.1
[2025-01-03 16:55] LABS: Prothrombin Time (Protime)PT. 31.5 SECONDS (11.7-14.9)
== END 2025-01-03 18:00 | disposition home or self-care (01) ==
LOC: LAB 14:59
PROVIDERS: Family Provider Family Medicine; PCP Family Medicine; Referring Provider Internal Medicine Cardiovascular Disease; Visit Provider Internal Medicine Cardiovascular Disease
DX: Z95.2 Presence of prosthetic heart valve (principal); Z79.01 Long term (current) use of anticoagulants; Z95.828 Presence of other vascular implants and grafts
CPT/HCPCS: 36415; 85610

== ENCOUNTER 2025-02-04 14:21 | Outpatient (RCR) | payer OTHER, SELFPAY ==
[2025-02-04 15:22] LABS: Prothrombin Time (Protime)PT. 33.9 SECONDS (11.7-14.9)
== END 2025-02-21 21:25 | disposition home or self-care (01) ==
LOC: LAB 14:21
PROVIDERS: Family Provider Family Medicine; PCP Family Medicine; Referring Provider Internal Medicine Cardiovascular Disease; Visit Provider Internal Medicine Cardiovascular Disease
DX: Z95.2 Presence of prosthetic heart valve (principal); Z79.01 Long term (current) use of anticoagulants; Z95.828 Presence of other vascular implants and grafts
CPT/HCPCS: 36415; 85610

== ENCOUNTER 2025-02-25 14:48 | Outpatient (RCR) | payer OTHER, SELFPAY ==
[2025-02-25 15:48] LABS: Prothrombin Time (Protime)PT. 34.4 SECONDS (11.7-14.9)
== END 2025-02-25 18:00 | disposition home or self-care (01) ==
LOC: LAB 14:48
PROVIDERS: Family Provider Family Medicine; PCP Family Medicine; Referring Provider Internal Medicine Cardiovascular Disease; Visit Provider Internal Medicine Cardiovascular Disease
DX: Z95.2 Presence of prosthetic heart valve (principal); Z79.01 Long term (current) use of anticoagulants; Z95.828 Presence of other vascular implants and grafts
CPT/HCPCS: 36415; 85610

== ENCOUNTER 2025-04-16 16:32 | Outpatient (RCR) | payer OTHER, SELFPAY ==
[2025-04-16 18:14] LABS: Prothrombin Time (Protime)PT. 30.0 SECONDS (11.7-14.9)
== END 2025-04-23 18:00 | disposition home or self-care (01) ==
LOC: LAB 16:32
PROVIDERS: Family Provider Family Medicine; PCP Family Medicine; Referring Provider Internal Medicine Cardiovascular Disease; Visit Provider Internal Medicine Cardiovascular Disease
DX: Z95.2 Presence of prosthetic heart valve (principal); Z79.01 Long term (current) use of anticoagulants; Z95.828 Presence of other vascular implants and grafts
CPT/HCPCS: 36415; 85610

== ENCOUNTER 2025-06-06 15:42 | Outpatient (RCR) | payer OTHER, SELFPAY ==
[2025-06-06 17:02] LABS: Prothrombin Time (Protime)PT. 27.0 SECONDS (11.7-14.9)
== END 2025-06-23 18:00 | disposition home or self-care (01) ==
LOC: LAB 15:42
PROVIDERS: Family Provider Family Medicine; PCP Family Medicine; Referring Provider Internal Medicine Cardiovascular Disease; Visit Provider Internal Medicine Cardiovascular Disease
DX: Z95.2 Presence of prosthetic heart valve (principal); Z79.01 Long term (current) use of anticoagulants
CPT/HCPCS: 36415; 85610